=== PATIENT | female | born 1935 | race Caucasian/White ===

== ENCOUNTER 2017-02-06 08:48 | Emergency (ER) | payer OTHER ==
[~2017-02-06] VITALS: Ht 152.4 cm; Wt 65.8 kg
[~2017-02-06 08:48] MED LIST: ACCUPRIL PO; ACETAMINOPHEN325 M1 PO; ACIPHEX 20 MG T20 MG PO; ACTONEL150 MG PO; ACTOS 45 MG45 M1 PO; ADULT LOW DOSE81 MG PO; AKWA TEARS EYE15 ML OP; ALBUTEROL2.5 MG/31; ALPRAZOLAM 0.0.25 M1 PO; AMARYL2 MG PO; ASPIR 8181 M1 PO; ASPIRIN81 M2 PO; AVELOX 400 MG400 M1 PO; B12INJ SUBQ; BISACODYL10 MG RC; BUDESONIDE EC3 MG PO; CALCIUM 500 +1 EAC5 PO; CALCIUM 500+D1 EAC2 PO; CALCIUM 600 +1 EAC1 PO; CEPHALEXIN500 MG PO; CIPROFLOXACIN500 M1 PO; COLACE100 MG PO; COMTAN200 MG PO; COZAAR 50 MG TA50 M2 PO; CYANOCOBAL1000 MCG/1 IM; CYANOCOBALAMI100 MCG PO; DETROL LA4 MG PO; DUETACT 30-2 M1 EACH PO; ENDOCORT PO; ENOXAPARIN40 MG/0.1 SUBQ; ENTOCORT EC 3 MG3 MG PO; ENTOCORT EC3 MG PO; FLEXERIL PO; FOSAMAX 70 MG T70 M1 PO; FOSAMAX 70 MG T70 MG PO; FUROSEMIDE 40 M40 M1 PO; FUROSEMIDE 40 M40 MG PO; FUROSEMIDE10 MG/1 M2 PO; GLIMEPIRIDE PO; HYDROCODON-ACE1 EAC7 PO; IBUPROFEN 400400 M1 PO; JANTOVEN1 MG PO; KEFLEX500 MG PO; KLOR-CON 10 ER10 MEQ PO; KLOR-CON 1010 MEQ PO; LANTUS SOL100 UNIT/1 SUBQ; LASIX 40 MG TAB40 M1 PO; LEVAQUIN 500 M500 M2 PO; LEVOTHYROXIN0.075 MG PO; LEVOTHYROXIN0.112 M1 PO; LEVOTHYROXIN0.125 M2 PO; LEVOXYL150 MCG PO; LEVOXYL75 MCG PO; LIDODERM 5%1 PATC1 TRANSDERM; LINZESS290 MCG PO; LOFIBRA160 MG PO; LOPRESSOR25; LOPRESSOR25 PO; MACROBID 100 M100 M1 PO; METHADONE HCL5 MG PO; MIRALAX255 GM PO; MIRAPEX ER0.75 MG PO; MULTIVITAMIN; NEPHROCAPS SOFT1 CAP; NEURONTIN 300300 M1 PO; NITROFURANTOIN100 MG PO; NORCO 5-325 TA1 EACH PO; NORTRIPTYLINE H10 M1 PO; NOVOLOG100 UNIT/1; OMEPRAZOLE PO; OSELB75 PO; PACERONE 200 M200 M1 NG; PACERONE 200 M200 M1 PO; PACERONE 200 M200 MG PO; PAMELOR10 MG PO; PIOGLITAZ-GLIM1 EAC1 PO; PIOGLITAZONE PO; POLYCITRA GT; POTASSIUM CHLO10 ME1 PO; PRILOSEC 20 MG20 MG PO; PRILOSEC20 MG PO; QUINU10 PD PO; RYTHMOL225 MG PO; SENOKOT-S1 TA1 PO; SIMVASTATIN20 MG PO; SINEMET 25-1001 EAC1 PO; SLOW-MAG64 MG PO; STOOL SOFTENER100 MG PO; STOOL SOFTENER250 MG PO; SYNTHROID75 MCG PO; TAMSULOSIN HCL0.4 M1 PO; TOPROL XL25 MG PO; TOPROL XL50 MG PO; TORSEMIDE100 MG PO; TRAMADOL 50 MG50 MG PO; TUMS PO; TYLENOL325 MG PO; VENTOLIN HFA 1818 GM; VITAMIN B-12100 MC1 PO; VITAMIN B-1250 MC1; Vitamin B-12; WELLBUTRIN SR150 MG PO; XANAX 0.25 MG0.25 MG PO; ZETIA10 MG PO; ZOCOR 10 MG TAB10 MG PO; ZOCOR40 MG PO; ZOFRAN ODT4 MG PO; ZYVOX600 MG PO
[2017-02-06 09:09] LABS: ABSOLUTE NEUTROPHILS 5.3 thou/uL (1.4-8.2); BASOPHILS 0.6 % (0.0-2.0); EOSINOPHILS 0.5 % (0.0-3.0); HEMATOCRIT 37.5 % (37.0-47.0); HEMOGLOBIN 12.6 gm/dL (12.0-15.0); LYMPHOCYTES 29.4 % (24.0-44.0); MANUAL DIFF NO; MCH 26.9 pg (26.0-34.0); MCHC 33.6 g/dL (28.0-37.0); MCV 80.1 fL (80.0-100.0); MONOCYTES 5.4 % (1.0-8.0); PLATELET COUNT 256 thou/uL (150-400); POLYS 64.1 % (36.0-66.0); RBC 4.68 mil/uL (4.20-5.00); RDW 17.6 % (10.5-14.5); WBC 8.3 thou/uL (4.0-11.0)
[2017-02-06 09:15] LABS: ANION GAP 10 mmol/L (7-16); BUN 16 mg/dL (7-18); CALCIUM 8.9 mg/dL (8.5-10.1); CHLORIDE 108 mmol/L (98-107); CO2 24 mmol/L (21-32); CREATININE 0.9 mg/dL (0.6-1.3); GLUCOSE 103 mg/dL (70-99); POTASSIUM 3.5 mmol/L (3.5-5.1); SODIUM 142 mmol/L (136-145)
[2017-02-06 09:20] LABS: ALBUMIN 2.6 g/dL (3.4-5.0); ALKALINE PHOSPHATASE 75 U/L (46-116); DIRECT BILIRUBIN < 0.1 mg/dL (<0.1-0.3); SGOT 21 U/L (15-37); SGPT 14 U/L (30-65); TOTAL BILIRUBIN 0.4 mg/dL (<0.1-1.0)
[2017-02-06 10:21] LABS: URINE BILIRUBIN NEGATIVE (Negative); URINE BLOOD 1+ (Negative); URINE COLOR YELLOW; URINE GLUCOSE-RANDOM* NEGATIVE (Negative); URINE KETONES NEGATIVE (Negative); URINE NITRITE NEGATIVE (Negative); URINE PROTEIN (DIPSTICK) TRACE (Negative)
[2017-02-06 10:51] LABS: CASTS None Seen /LPF (None Seen); CRYSTALS None Seen /LPF (None Seen); SQUAMOUS >10 Many /LPF (0-3); URINE RBC 0-2 Rare /HPF (0-2); URINE WBC >25 Many /HPF (0-5)
[2017-02-06 10:52] LABS: BACTERIA >30 Many /HPF (None Seen)
[2017-02-06] MEDS ORDERED: COZAAR 25 MG TA25 M1 PO (10:57)
[2017-02-06] MEDS ORDERED: KEFLEX500 MG PO (10:58)
[2017-02-06] MEDS ORDERED: CITRATE OF MAG296 ML PO (10:59)
[2017-02-06] MEDS ORDERED: CIPROFLOXACIN500 M1 PO (11:03)
== END 2017-02-06 12:41 | disposition home or self-care (01) ==
LOC: ER 08:48
PROVIDERS: Emergency Medicine
DX: N39.0 Urinary tract infection, site not specified (principal); K59.00 Constipation, unspecified; R11.0 Nausea; I48.91 Unspecified atrial fibrillation; I10 Essential (primary) hypertension; K21.9 Gastro-esophageal reflux disease without esophagitis; K50.90 Crohn's disease, unspecified, without complications; E11.9 Type 2 diabetes mellitus without complications; I69.820 Aphasia following other cerebrovascular disease; Z88.8 Allergy status to other drugs, medicaments and biological substances; Z86.2 Personal history of diseases of the blood and blood-forming organs and certain disorders involving the immune mechanism; Z88.2 Allergy status to sulfonamides; Z88.5 Allergy status to narcotic agent

== ENCOUNTER 2018-04-24 21:08 | Inpatient (IN) | payer OTHER ==
[~2018-04-24] VITALS: Ht 154.9 cm; Wt 60.3 kg
--- NOTE | ~2018-04-24 | HC ---
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 She was a premorbid short distance walker ambulator and used the wheelchair in the community. She was admitted with right hip pain, noted to have a hip subtrochanteric fracture and underwent intramedullary nailing on 04/25/2018. She is limited to toe touch weightbearing. She has an acute blood loss anemia with a hemoglobin of 6.9, was noted to have leukocytosis, dehydration. She was noted to have dysarthria and MRI of the brain confirmed the old left large middle cerebral artery CVA. PAST MEDICAL HISTORY: Includes the CVA in 2009 with the residual right hemiparesis. She has had a history of multiple old compression fractures T10-T12, L2-L3, history of paroxysmal atrial fibrillation, diabetes mellitus, GERD and GI bleed. MEDICATIONS: Please see the full medication listing. ALLERGIES: Multiple allergies are as listed. SOCIAL HISTORY: House, spouse, one step in, again roller walker in the home. She has residual flexion deformity of her right hand and was really only able to use her thumb and index finger around the walker on the right hand and then used the left hand normally. She otherwise was using a wheelchair. helped with dressing activities. REVIEW OF SYSTEMS: She has some discomfort involving that right hip as expected. No complaints of chest pain, shortness of breath, abdominal discomfort. PHYSICAL EXAMINATION: GENERAL: An 82-year-old female in no obvious distress. She is currently on nasal prong O2. VITAL SIGNS: Temperature 98.4, pulse 95, respirations 18, blood pressure 103/53. NEUROLOGIC: She is alert. She follows basic 1 step commands. Facies are [facility] [address] [place] [address] CONSULTATION Name: JADA BOLTON Room #: [address] [place] [address] [place] ..#: [id number] Admission: 04/24/18 Attend Phys: Onofre Rocha Discharge: Date of : 34 Report #: [id number] symmetric. She has functional range of motion of the left upper extremity without focal weakness. Right upper extremity reveals residual hemiparesis. Proximal strength is probably a grade 2+ to 3. She keeps her right hand in assisted position. I was able to extend those fingers probably an inch away from being totally fixed and flexion against her palm. She only has some gross movement of that right hand without any fine finger dexterity and remains in a fist position. In her right lower extremity, her incision is dressed. She has positioning in a plantar flexion, inversion ankle, but is able to dorsiflex some at least a grade 3+. Left lower extremity revealed reasonable range of motion. Strength is probably a grade 3+ to 4-. She is currently max assist with supine to sit, toe touch weightbearing. ASSESSMENT: An 82-year-old female with the following problems: 1. Right hip subtrochanteric fracture status post intramedullary nail on 04/25/2018, toe touch weightbearing. 2. 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 3. Right upper extremity weakness, which inhibits full grasp of the right hand on the walker handle. 4. Dysarthria. 5. Leukocytosis. 6. Acute blood loss anemia. 7. Dehydration. 8. History of multiple old compression fractures. 9. Paroxysmal atrial fibrillation. 10. Diabetes mellitus. 11. Gastroesophageal reflux. PLAN: We are assessing the patient as far as tolerance for rehabilitation. We will be glad to follow along with you. <ELECTRONICALLY SIGNED> By: Saul Saunders MD 04/28/18 1228 1134 1319 Saul Saunders MD /[facility]
--- NOTE | ~2018-04-24 | O ---
[facility] [place] [address] [place] [address] OPERATIVE REPORT Name: JADA BOLTON Room #: 401-I [facility] IN M.R.#: [id number] Admission: 04/24/18 Attend Phys: Onofre Rocha Discharge: Date of : 34 Report #: [id number] THIS REPORT FOR: //name// CC: FAM unknown Onofre Gillespie DATE OF SERVICE: 04/25/2018 PREOPERATIVE DIAGNOSIS: Right hip subtrochanteric hip fracture. POSTOPERATIVE DIAGNOSIS: Right hip subtrochanteric hip fracture. PROCEDURE: Right hip intramedullary nail. SURGEON: Clint Joseph MD GILL BOX FIXER: Emma Freed. ANESTHESIA: General. ESTIMATED BLOOD LOSS: 50 mL. DRAINS: No drains. TOURNIQUET: No tourniquet. COMPLICATIONS: No complications. DESCRIPTION OF PROCEDURE: The patient brought to the operating room where she was placed under general anesthesia. Once under adequate general anesthesia, she was placed onto the operative table. The right hip was then placed into traction and a closed reduction was then achieved of the hip fracture. Utilizing fluoroscopy for guidance, a lateral incision was made just proximal to the tip of the greater trochanter. A curved cannulated awl was then utilized to obtain an entrance position for the guidewire for the trochanteric femoral nail from [employer]. Guidewire was then placed and subsequently the 11 mm short trochanteric femoral nail from [employer] was placed. A lateral incision was made over the guide for the compression screw guidewire, which was then placed through the lateral cortex of the femur into the central portion of the femoral head. Once in place, this was then drilled for and a 100-mm compression screw was then placed. Excellent position and alignment was achieved in this manner. A separate small incision, approximately 1 cm in length was then made for placement of the transverse locking screw. This was then placed under fluoroscopic guidance as well and a 36 mm screw was utilized for fixation. Excellent fixation and alignment was achieved. The proximal locking screw was [facility] [address] [place] [address] OPERATIVE REPORT Name: JADA BOLTON Room #: 401-I [facility] IN [facility].#: [id number] Admission: 04/24/18 Attend Phys: Onofre Rocha Discharge: Date of : 34 Report #: [id number] locked. The wounds were irrigated copiously. The outrigger jig was then removed from the nail. Final images were taken. The wounds were irrigated copiously and closed with 2-0 Vicryl and subcutaneous tissues. Chloe were used for the skin. The wounds were dressed with Xeroform, 4 x 4s, and sterile soft compressive dressing was placed. There were no complications from the procedure. The patient tolerated the procedure well and went to the recovery room without incident. By: 1440 1519 Clint Joseph MD /nt
[~2018-04-24 21:08] MED LIST changes: +CITRATE OF MAG296 ML PO; +COZAAR 25 MG TA25 M1 PO; +FEVERALL650 MG RECTAL; +HUMALOG100 UNIT/1 SUBQ; +OXYCODONE HCL 55 MG PO
[2018-04-24 21:13] VITALS: BP 116/50
[2018-04-24 23:10] LABS: CALCIUM 8.3 mg/dL (8.5-10.1); POTASSIUM 3.9 mmol/L (3.5-5.1)
[2018-04-25] VITALS (7 sets, daily range): BP systolic 101–136; BP diastolic 48–68
[2018-04-25 00:08] LABS: ABSOLUTE NEUTROPHILS 15.3 thou/uL (1.4-8.2); BASOPHILS 0.1 % (0.0-2.0); HEMATOCRIT 28.3 % (37.0-47.0); HEMOGLOBIN 8.8 gm/dL (12.0-15.0); LYMPHOCYTES 8.2 % (24.0-44.0); MCH 22.9 pg (26.0-34.0); MCV 73.8 fL (80.0-100.0); MONOCYTES 6.7 % (1.0-8.0); PLATELET COUNT 282 thou/uL (150-400); RBC 3.83 mil/uL (4.20-5.00); RDW 19.3 % (10.5-14.5)
[2018-04-25 02:25] LABS: ANISOCYTOSIS 2+; HYPOCHROMASIA SLIGHT; LARGE PLATELETS OCCASIONAL; POLYCHROMASIA OCCASIONAL
[2018-04-25 02:46] LABS: URINE BILIRUBIN NEGATIVE (Negative); URINE BLOOD NEGATIVE (Negative); URINE CLARITY CLEAR; URINE COLOR YELLOW; URINE GLUCOSE-RANDOM* NEGATIVE (Negative); URINE KETONES NEGATIVE (Negative); URINE LEUKOCYTES-REFLEX NEGATIVE (Negative); URINE NITRITE-REFLEX NEGATIVE (Negative); URINE PROTEIN (DIPSTICK) NEGATIVE (Negative)
[2018-04-25 02:59] LABS: PROTIME 10.7 Seconds (9.3-11.4)
[2018-04-25 05:06] LABS: ALBUMIN 2.7 g/dL (3.4-5.0); DIRECT BILIRUBIN 0.2 mg/dL (<0.1-0.3); SGOT 26 U/L (15-37); SGPT 37 U/L (30-65); TOTAL BILIRUBIN 0.4 mg/dL (<0.1-1.0); TOTAL PROTEIN 6.8 g/dL (6.4-8.2); TROPONIN-I < 0.04 ng/mL (<0.06)
[2018-04-25 07:31] LABS: CALCIUM 8.7 mg/dL (8.5-10.1); CREATININE 1.1 mg/dL (0.6-1.0); POTASSIUM 3.7 mmol/L (3.5-5.1)
[2018-04-25 08:17] LABS: HEMATOCRIT 28.3 % (37.0-47.0); HEMOGLOBIN 9.1 gm/dL (12.0-15.0); MCH 23.3 pg (26.0-34.0); MCHC 32.2 g/dL (28.0-37.0); MCV 72.6 fL (80.0-100.0); RBC 3.9 mil/uL (4.20-5.00); RDW 18.7 % (10.5-14.5); WBC 14.5 thou/uL (4.0-11.0)
[2018-04-25 13:12] LABS: GLYCOHEMOGLOBIN (HGB A1C) 6.5 % (4.8-5.6)
[2018-04-26 03:04] VITALS: BP 108/49
[2018-04-26 05:54] LABS: HEMATOCRIT 21.6 % (37.0-47.0); MCHC 31.8 g/dL (28.0-37.0); RDW 18.7 % (10.5-14.5); WBC 14.9 thou/uL (4.0-11.0)
[2018-04-26 05:56] LABS: MCH 23.3 pg (26.0-34.0); MCV 73.4 fL (80.0-100.0); RBC 2.94 mil/uL (4.20-5.00)
[2018-04-26 06:05] LABS: ALBUMIN 2.3 g/dL (3.4-5.0); CALCIUM 7.6 mg/dL (8.5-10.1); CREATININE 1.2 mg/dL (0.6-1.0); PHOSPHORUS 3.7 mg/dL (2.5-4.9); POTASSIUM 3.4 mmol/L (3.5-5.1)
[2018-04-26 06:15] LABS: HEMOGLOBIN 6.9 gm/dL (12.0-15.0)
[2018-04-26 06:58] VITALS: BP 116/62
[2018-04-26 10:37] LABS: CHOLESTEROL 129 mg/dL (<200); HDL CHOLESTEROL 34 mg/dL (>40); LDL CHOLESTEROL 70 mg/dL (<100); TC:HDL 3.8 Ratio (Not establshd); TRIGLYCERIDE 127 mg/dL (<150); VLDL 25 mg/dL (<40)
[2018-04-26 12:36] LABS: HEMATOCRIT 19.4 % (37.0-47.0); HEMOGLOBIN 6.2 gm/dL (12.0-15.0)
[2018-04-26 12:43] VITALS: BP 109/46; BP 117/62
[2018-04-26 16:45] VITALS: BP 117/62
[2018-04-26 20:37] VITALS: BP 113/45
[2018-04-26 21:31] LABS: HEMATOCRIT 24.1 % (37.0-47.0); HEMOGLOBIN 7.7 gm/dL (12.0-15.0)
[2018-04-27 03:17] VITALS: BP 104/45
[2018-04-27 05:34] LABS: HEMATOCRIT 23.7 % (37.0-47.0); HEMOGLOBIN 7.6 gm/dL (12.0-15.0); MCH 23.8 pg (26.0-34.0); MCHC 32.1 g/dL (28.0-37.0); MCV 74.2 fL (80.0-100.0); RBC 3.19 mil/uL (4.20-5.00); RDW 17.7 % (10.5-14.5); WBC 13.9 thou/uL (4.0-11.0)
[2018-04-27 07:34] VITALS: BP 103/53
[2018-04-27 16:57] VITALS: BP 91/46
[2018-04-27 20:00] VITALS: BP 88/46
[2018-04-28 04:00] VITALS: BP 81/62
[2018-04-28 04:40] LABS: HEMATOCRIT 23.6 % (37.0-47.0); HEMOGLOBIN 7.6 gm/dL (12.0-15.0); MCH 24.1 pg (26.0-34.0); MCHC 32.3 g/dL (28.0-37.0); MCV 74.4 fL (80.0-100.0); RBC 3.17 mil/uL (4.20-5.00); RDW 18.1 % (10.5-14.5); WBC 10.7 thou/uL (4.0-11.0)
[2018-04-28 04:48] LABS: CALCIUM 7.8 mg/dL (8.5-10.1); PHOSPHORUS 2.5 mg/dL (2.5-4.9); POTASSIUM 3.2 mmol/L (3.5-5.1)
[2018-04-28 06:37] VITALS: BP 109/44
[2018-04-28 07:17] VITALS: BP 123/57
[2018-04-28] MEDS ORDERED: ENOXAPARIN30 MG/0.1 SUBQ (11:55)
== END 2018-04-28 16:16 | DRG 480 ==
LOC: ER 21:08 → 4N 22:22 → EROBS 22:22 → 4N 04-25 08:45
PROVIDERS: Emergency Medicine; Hospitalist; Nurse Practitioner Acute Care; Orthopaedic Surgery Foot and Ankle Surgery
PROC: 0QS806Z Reposition Right Femoral Shaft with Intramedullary Internal Fixation Device, Open Approach (ICD-10-PCS; principal; 2018-04-25)
PROC: 30233N1 Transfusion of Nonautologous Red Blood Cells into Peripheral Vein, Percutaneous Approach (ICD-10-PCS; 2018-04-26)
DX: S72.141A Displaced intertrochanteric fracture of right femur, initial encounter for closed fracture (principal); E43 Unspecified severe protein-calorie malnutrition; K50.90 Crohn's disease, unspecified, without complications; I69.951 Hemiplegia and hemiparesis following unspecified cerebrovascular disease affecting right dominant side; D62 Acute posthemorrhagic anemia; E03.9 Hypothyroidism, unspecified; K21.9 Gastro-esophageal reflux disease without esophagitis; E11.9 Type 2 diabetes mellitus without complications; I48.0 Paroxysmal atrial fibrillation; R47.1 Dysarthria and anarthria; K59.00 Constipation, unspecified; D72.829 Elevated white blood cell count, unspecified; E86.0 Dehydration; W18.39XA Other fall on same level, initial encounter; Y93.89 Activity, other specified; Y92.89 Other specified places as the place of occurrence of the external cause; Y99.8 Other external cause status; Z82.49 Family history of ischemic heart disease and other diseases of the circulatory system; Z83.3 Family history of diabetes mellitus; I69.920 Aphasia following unspecified cerebrovascular disease; Z88.8 Allergy status to other drugs, medicaments and biological substances; Z88.6 Allergy status to analgesic agent; Z88.2 Allergy status to sulfonamides; Z79.899 Other long term (current) drug therapy; Z79.01 Long term (current) use of anticoagulants; Z68.25 Body mass index [BMI] 25.0-25.9, adult
CPT/HCPCS: 10790; 50010; 50101; 50133; 50386; 50635; 51412; 51538; 51817; 52146; 56524; 57092; 62110; 62900; 65045; 70005

== ENCOUNTER 2018-04-28 13:16 | Inpatient (IN) | payer OTHER ==
[~2018-04-28] VITALS: Ht 162.6 cm; Wt 61.2 kg
--- NOTE | ~2018-04-28 | 2DMMODE ---
[facility] [address] [place] [address] 2 D/M-MODE ECHOCARDIOGRAM Name: JADA BOLTON Room #: 512-P [facility] IN ..#: [id number] Admission: 04/28/18 Attend Phys: Saul Saunders, Discharge: Date of : 34 Date of Service: 05/01/18 1531 Report #: [id number] THIS REPORT FOR: //name// APPROVED REPORT Study performed: 05/01/2018 13:43:59 EXAM: Comprehensive 2D, Doppler, and color-flow Echocardiogram Patient Location: Bedside Room #: 512 Status: routine BSA: 1.69 HR: 112 bpm BP: 122/46 mmHg Rhythm: Tachycardia Other Information Study Quality: Adequate Technically limited study due to inabilibty to position patient. Sitting upright in bed. Indications Elevated BNP, hypoxemia. Hx: CVA, Afib, DM, HTN. 2D Dimensions RVDd: 20.64 mm LVEF(%): 75.85 (>50%) IVSd: 8.31 (7-11mm) LVOT Diam: 19.68 (18-24mm) LVDd: 33.76 mm PWd: 7.29 (7-11mm) LVDs: 19.06 (25-40mm) Aortic Root: 30.48 mm Sanchez's LVEF: 75.85 % Volumes Left Atrial Volume (Systole) Single Plane 4CH: 24.86 mL Single Plane 2CH: 45.74 mL Aortic Valve AoV Peak Ignacio.: 2.30 m/s AO Peak Gr.: 21.13 mmHg LVOT Max P.29 mmHg LVOT Max V: 1.44 m/s OLEG Vmax: 1.90 cm2 Mitral Valve E/A Ratio: 0.7 [facility] [place] [address] 2 D/M-MODE ECHOCARDIOGRAM Name: JADA BOLTON Room #: 512-P [facility] IN ..#: [id number] Admission: 04/28/18 Attend Phys: Saul Saunders, Discharge: Date of : 34 Date of Service: 05/01/18 1531 Report #: [id number] MV Decel. Time: 132.96 ms MV E Max Ignacio.: 1.07 m/s MV A Ignacio.: 1.60 m/s MV PHT: 38.56 ms IVRT: 46.14 ms Pulmonary Valve PV Peak Ignacio.: 1.29 m/s PV Peak Gr.: 6.68 mmHg Tricuspid Valve TR Peak Ignacio.: 2.91 m/s TR Peak Gr.: 33.87 mmHg Left Ventricle The left ventricle is normal size. There is normal LV segmental wall motion. There is normal left ventricular wall thickness. Left ventricular systolic function is hyperdynamic. LVEF is 65-70%. Mild diastolic dysfunction is present (impaired relaxation pattern). Right Ventricle The right ventricle is normal size. The right ventricular systolic function is normal. Atria Left atrium is mildly dilated. Hyperdynamic motion of the IAS noted. The right atrium size is normal. Aortic Valve Aortic valve is mildly calcified. No aortic regurgitation is present. There is no aortic valvular stenosis. Mitral Valve The mitral valve is normal in structure. Trace mitral regurgitation. Tricuspid Valve The tricuspid valve is normal in structure. Mild tricuspid regurgitation. Estimated PAP is 35mmHg plus the right atrial pressure. Pulmonic Valve Pulmonic valve is not well visualized. Great Vessels The aortic root is normal in size. Ascending aorta is not well [facility] [address] [place] [address] 2 D/M-MODE ECHOCARDIOGRAM Name: JADA BOLTON Room #: 512-P [facility] IN .R.#: [id number] Admission: 04/28/18 Attend Phys: Saul Saunders, Discharge: Date of : 34 Date of Service: 05/01/18 1531 Report #: [id number] visualized. IVC is not well visualized. Pericardium There is no pericardial effusion. <Conclusion> The left ventricle is normal size. LVEF is 65-70%. Left atrium is mildly dilated. Aortic valve is mildly calcified. The mitral valve is normal in structure. Trace mitral regurgitation. The tricuspid valve is normal in structure. Mild tricuspid regurgitation. Estimated PAP is 35mmHg plus the right atrial pressure. Ascending aorta is not well visualized. There is no pericardial effusion. <ELECTRONICALLY SIGNED> By: Wisam Carrasco MD 05/01/18 1531 1531 153 Wisam Carrasco MD /INF
--- NOTE | ~2018-04-28 | HC ---
[facility] [place] [address] [place] [address] CONSULTATION Name: JADA BOLTON Room #: 512-P [facility] IN M.R.#: [id number] Admission: 04/28/18 Attend Phys: Saul Saunders MD Discharge: 05/11/18 Date of : 34 Report #: [id number] THIS REPORT FOR: //name// CC: Saul Saunders Alyssia Gillespie DATE OF SERVICE: 05/11/2018 SUBJECTIVE: The patient is a pleasant 82-year-old woman is seen by the wound care team consisting the wound care nurse and the wound care surgeon. She is being seen for pressure ulcers of the right and left heel, immobility, protein calorie malnutrition and abrasions of her right thigh, left arm and right arm, which are skin tears. OBJECTIVE: Examination today shows dry, dark pressure ulcers, which are deep tissue injuries of indeterminate depth of the right and the left heel. Right heel ulcer is larger than the left. Left is lateral and small. The patient is relatively immobile. She appears malnourished. The patient has superficial abrasion of the right thigh. There are superficial skin tears of the left arm and the right arm. PLAN: Maximize nutrition. Foam border for both heels with foam boots to offload and protect the heels. Foam borders for abrasions of the right thigh, left arm and right arm. Wound care team will follow. <ELECTRONICALLY SIGNED> By: Jose Mejía MD 05/14/18 1000 1702 1939 Jose Mejía MD /shyla
--- NOTE | ~2018-04-28 | HC ---
[facility] [place] [address] CONSULTATION Name: JADA BOLTON Room #: 512-P [facility] IN .R.#: [id number] Admission: 04/28/18 Attend Phys: Saul Saunders MD Discharge: 05/11/18 Date of : 34 Report #: [id number] THIS REPORT FOR: //name// CC: Saul Saunders Alyssia Ellisonjaz DATE OF SERVICE: 05/05/2018 CHIEF COMPLAINT: Pressure ulcerations to both lower extremities. HISTORY OF PRESENT ILLNESS: This is an 82-year-old female patient who sustained a right hip subtrochanteric fracture. She underwent open reduction and internal fixation with a right hip intramedullary nail on 04/25/2018. She has been in rehabilitation. She is noted to have deep tissue injuries to her right heel and left lateral foot and I have been asked to see her with regard to wound care. The patient cannot provide much information about herself at present. She is awake, sitting in a wheelchair. She complains of significant pain, in particular in her right hip. She is nonweightbearing currently on her right hip. She does have weightbearing on her left side to aid with transfers. PAST MEDICAL HISTORY: Positive for cerebrovascular accident in 2009 with residual hemiparesis, she has old compression fractures, paroxysmal atrial fibrillation, diabetes, gastroesophageal reflux disease and history of GI bleeding. MEDICATIONS: Please see full list of medications on the patient's MAR. These have been reviewed. ALLERGIES: INCLUDE DILTIAZEM, NITROFURANTOIN MACROCRYSTAL, SULFA, HYDROCODONE, METFORMIN. SOCIAL HISTORY: Negative for alcohol or tobacco use. FAMILY HISTORY: Noncontributory. REVIEW OF SYSTEMS: Mostly unobtainable due to the fact that the patient seems to be in pain and has either an inability to fully answer questions or has some baseline cognitive deficit. PHYSICAL EXAMINATION: VITAL SIGNS: At this time include pulse rate of 85, respiratory rate 12, blood pressure 119/55, and temperature 98.4. GENERAL: This is a chronically ill-appearing female patient, appears to be in moderate discomfort. HEENT: Normocephalic. NECK: Supple. [facility] [address] [place] [address] CONSULTATION Name: JADA BOLTON Room #: 512-P [facility] IN M.R.#: [id number] Admission: 04/28/18 Attend Phys: Saul Saunders MD Discharge: 05/11/18 Date of : 34 Report #: [id number] LUNGS: Diminished. HEART: Irregular. ABDOMEN: Soft. EXTREMITIES: Demonstrate 1+ edema. She has some dependent edema and some hyperpigmentation of the skin. She has a deep tissue injury to the posterior aspect of the right heel, nothing is open at this time. On the left side, she also has a deep tissue injury to the posterior lateral portion of her heel, once again nothing is open. CLINICAL IMPRESSION: 1. Deep tissue injury to both heels. 2. Recent right hip fracture. 3. Status post open reduction and internal fixation, 04/25/2018. 4. Diabetes. 5. Paroxysmal atrial fibrillation. RECOMMENDATIONS: At this point in time, the patient will need Prevalon boots for pressure prophylaxis. We will recommend topical bordered foam to help protect these areas, we will continue to follow them closely while she is here. It may be of benefit to check arterial Dopplers to verify arterial flow. I appreciate being asked to see her in consultation. <ELECTRONICALLY SIGNED> By: Solis Nicole MD 05/15/18 1406 0843 1338 Solis Nicole MD /nt
--- NOTE | ~2018-04-28 | PLAN ---
[facility] [place] [address] [place] [address] REHAB UNIT PLAN OF CARE Name: JADA BOLTON Room #: 512-P ADM IN M.R.#: [id number] Admission: 04/28/18 Attend Phys: Saul Saunders MD Discharge: Date of : 34 Report #: [id number] THIS REPORT FOR: //name// CC: Saul Gillespie DATE OF SERVICE: 05/01/2018 SUBJECTIVE: The patient is seen back today in followup. She had kind of a rough weekend with some decreased orientation. She does have the prior aphasia. She has been on 2 liters nasal prong O2. She has some edema in both lower and upper extremities, 1-2+. She has been changed over to a low air loss mattress. She has an indwelling Mahajan catheter. has been assisting with feeding her. She has been max assist with attempted to sit to stand and bed to chair transfers. She is unable to ambulate with her prior CVA and hemiparesis and the toe touch nonweightbearing status. She has been dependent for toileting and bed mobility. Max assist for comprehension. ASSESSMENT: 1. Right hip subtrochanteric fracture, status post intramedullary nailing, 04/25/2018, toe-touch weightbearing to nonweightbearing. 2. 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 3. Right upper extremity weakness, which inhibits full grasp of the right hand. 4. Dysarthria. 5. Acute blood loss anemia, was transfused over 7.0. 6. Tachycardia with congestive heart failure. She has been on Lasix. 7. Dehydration, resolved. 8. Diabetes mellitus. 9. Gastroparesis. PLAN: The overall plan of care is based on the preadmission screen, post-admission physician evaluation and information garnered from therapy assessments. 1. Estimated length of stay is probably going to be quite long at this point as she is at a lower functional level. 2. Medical prognosis is reasonably good. 3. Anticipated interventions includes the interdisciplinary acute inpatient rehabilitation program with the goal of trying to improve her functional mobility and ADL independence as well as working with her regarding communication issues. We will have the interdisciplinary acute rehab team involved along with the sales representative consultant physicians. 4. Anticipated functional outcome would be for her to hopefully improve as far as basic transfers and functional mobility issues and ADLs as well as communication to achieve a point where she could be managed at the wheelchair level where her could assist her. [facility] [address] [place] [address] REHAB UNIT PLAN OF CARE Name: JADA BOLTON Room #: 512-P [facility] IN .R.#: [id number] Admission: 04/28/18 Attend Phys: Saul Saunders MD Discharge: Date of : 34 Report #: [id number] 5. Discharge destination would be back home with her . 6. Expected therapy by discipline includes PT, OT and speech 1 hour per day each five days a week throughout the duration of the acute inpatient rehabilitation stay. She actually is on the low endurance program and we are continuing to work with her. ADDENDUM: The patient did miss some therapies on 04/29/2018 on Tuesday when she had some increased fatigue and some increased shortness of air with Internal Medicine involved and the use of Lasix. ADDENDUM As far as estimated length of stay, I would estimate at least 3 weeks to 4 weeks pending her progress. This is based on her prior CVA with residual hemiparesis complicated by the hip fracture with the limited weightbearing status. By: 0913 [id number] Saul Saunders MD /[facility]
--- NOTE | ~2018-04-28 | EKG ---
[address] [address] ELECTROCARDIOGRAM REPORT Name: JADA BOLTON Room #: 512- ADM IN M.R.#: [id number] Admission: 04/28/18 Attend Phys: Saul Saunders MD Discharge: Date of : 34 Report #: [id number] THIS REPORT FOR: //name// [facility] Test Date: 2018-04-30 Test Time: 10:43:38 Pat Name: JADA BOLTON Department: Room: 512 Gender: F Survey Interviewer: tess : 1935 Requested By: Onofre Rocha Order Number: [id number] MD: Antonio Mckeon Measurements Intervals [place] Rate: 94 P: 27 MD: 175 QRS: -32 QRSD: 88 T: 51 QT: 394 QTc: 493 Interpretive Statements Sinus rhythm Inferior infarct, old Compared to ECG 05/06/2017 15:26:09 Myocardial infarct finding now present Prolonged QT interval no longer present Electronically Signed On 04-30-2018 21:18:26 CDT by Antonio Mckeon [email or web address] <ELECTRONICALLY SIGNED> By: Antonio Mckeon MD 04/30/18 2118 1043 1043 Antonio Mckeon MD /[facility]
--- NOTE | ~2018-04-28 | H ---
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 She was a premorbid short distance walker ambulator and used a wheelchair in the community. She was originally admitted with right hip pain, noted to have a hip subtrochanteric fracture and underwent intramedullary nailing on 04/25/2018. She is limited to toe touch nonweightbearing. She had an acute blood loss anemia with a hemoglobin of 6.9. She was noted to have leukocytosis and dehydration. She does have dysarthria and with her significant right-sided hemiparesis, there was a concern as to whether she may have extended her stroke. MRI of the brain confirmed the old left large middle cerebral artery CVA. With her significant hemiparesis, her speech difficulties complicated now with the hip fracture. She was noted to have a functional decline from her premorbid status. She has been admitted now for acute in-hospital inpatient rehabilitation. 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 She has history of multiple old compression fractures, T10-T12 through L2-L3. She has a history of paroxysmal atrial fibrillation, diabetes mellitus, GERD, and GI bleed. MEDICATIONS: Please see the full medication listing. These medications include vitamins, herbals, and supplements. ALLERGIES: Multiple allergies are as listed. SOCIAL HISTORY: She lives in a house with her , one step in. She used a roller walker in the home. She has a residual flexion deformity of her right hand and was only able to use her thumb and index finger around the walker with the right hand and then use the left hand normally around the walker. She otherwise was using the wheelchair. helps with dressing activities. REVIEW OF SYSTEMS: Some discomfort involving the right hip. No complaints of chest pain, shortness of breath or abdominal discomfort. She has residual right-sided weakness with her old stroke. PHYSICAL EXAMINATION: [address] [address] HISTORY AND PHYSICAL Name: JADA BOLTON Room #: 512-P [facility] IN [facility]#: [id number] Admission: 04/28/18 Attend Phys: Saul Saunders MD Discharge: Date of : 34 Report #: [id number] GENERAL: The patient was seen earlier. An 82-year-old in no distress. VITAL SIGNS: Pulse 102, respirations 18, blood pressure 132/55. She is alert. HEENT: Facies appeared to be symmetric. She does have some dysarthria and somewhat difficult to understand, but if she speaks slowly, I can understand her. Belarusian is her primary language, but she can speak Kyrgyz. Her assists with communication. EOMs otherwise appeared full. CHEST: Sounded clear to auscultation. CARDIAC: Regular rate and rhythm. ABDOMEN: Bowel sounds positive, nontender. GENITOURINARY AND RECTAL: Deferred. MUSCULOSKELETAL: She has functional range of motion of the left upper extremity without focal weakness. Right upper extremity reveals residual hemiparesis. Proximal strength is a grade 2+ to 3. She keeps the right hand in a fisted position. I was able to extend those fingers probably an inch away from being totally fixed and flexed against her palm. She only has some gross movement of that right hand without any fine finger dexterity and remains in the fisted position. In her right lower extremity, her incision is dressed. She has positioning on plantar flexion, inversion of the ankle, but can dorsiflex some at least to a grade 3+. Left lower extremity revealed reasonable range of motion. Strength is probably a grade 3+ to 4-/5. She has been max assist with supine to sit, toe touch weightbearing. ASSESSMENT: An 82-year-old female with the following problem list: 1. Right hip subtrochanteric fracture, status post intramedullary nail on 04/25/2018, toe touch weightbearing. 2. 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 3. Right upper extremity weakness, which inhibits full grasp of the right hand on the walker handle. 4. Dysarthria. 5. Leukocytosis. 6. Acute blood loss anemia. 7. Dehydration. 8. History of multiple old compression fractures. 9. Paroxysmal atrial fibrillation. 10. Diabetes mellitus. 11. Gastroparesis. PLAN: The patient is admitted for acute in-hospital inpatient rehabilitation. From a postadmission physician evaluation perspective, there are no relevant changes since the preadmission screening. Please see the above review of prior and current medical and functional conditions and comorbidities. Please see the patient's previous and current functional status. As far as risk of complication, she does have the above noted comorbidities. The initial plan of care involves the interdisciplinary acute inpatient rehabilitation program with the goal of maximizing the patient's functional independence, so she can [address] [place] [address] HISTORY AND PHYSICAL Name: JADA BOLTON Shannan Room #: 512-P ADM IN M.R.#: [id number] Admission: 04/28/18 Attend Phys: Saul Saunders MD Discharge: Date of : 34 Report #: [id number] hopefully return back to her prior living situation. Measurable functional goals would be for her to improve as far as basic bed mobility and transfers to try to achieve independence at the wheelchair level to try to return back home. Prognosis is reasonably good with estimated length of stay probably fairly long as she is at a lower level. The goal would be to achieve a functional level where the and family can take care for her in the home setting. Potential barriers would include her medical comorbidities and decreased functional status. The patient meets diagnostic criteria for an acute in-hospital inpatient rehabilitation stay. She meets the medical necessity criteria and we will have the senior business consultant physicians continue to follow. She does have the tolerance for therapies and we assessed this prior to bringing her up to the rehab [place]. She also has appropriate discharge goals back to the home setting. By: [id number] Saul Saunders MD /nt
--- NOTE | ~2018-04-28 | HC ---
[facility] [place] [address] CONSULTATION Name: JADA BOLTON Room #: 512-P [facility] IN .R.#: [id number] Admission: 04/28/18 Attend Phys: Saul Saunders MD Discharge: Date of : 34 Report #: [id number] THIS REPORT FOR: //name// CC: Saul Saunders Alyssia Gillespie DATE OF SERVICE: 05/06/2018 NEUROBEHAVIORAL STATUS EXAMINATION ATTENDING PHYSICIAN: Saul Saunders MD RUG UNDERLAY MACHINE OPERATOR: Gregorio Cheng, PhD CLINICAL PRESENTATION: The patient is an 82-year-old female, admitted to [facility] for a comprehensive inpatient rehabilitation program to improve functional mobility, activities of daily living and self-care and mental status secondary to deficits from a right hip subtrochanteric fracture. She was admitted to rehab following an intramedullary nailing on 04/25/2018. The patient is toe touch weightbearing. 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 A complete description of her medical condition and history along with medications can be found in her medical record. Neuropsychological consultation was requested to provide assistance in the assessment of cognitive and emotional status and to provide recommendations and services. Prior to this most recent medical event she was living with the assistance of her in their home. She has 4 children. The patient is a high school graduate. 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 She is described to have a good functional Gibraltarian and is fluent in Citizen Of [place], which is her primary language. There is no prior history of treatment for anxiety or depression that is reported. She is described as having required assistance with some basic and all instrumental activities of daily living prior to this most recent stroke. TECHNIQUES UTILIZED: Clinical interview, review of medical records, staff consultation and behavioral observation, mini mental status exam 2 brief version, and family interview -- . EXAMINATION FINDINGS: The patient was alert and cooperative with the assessment. Citizen Of [place] is better maintained for communication in comparison to [place]raltarian. The patient was oriented to person and place, but not location or time. She has been showing intermittent periods of confusion and disorientation [address] [address] CONSULTATION Name: PAPITO BOLTONVA Room #: 512-P [facility] IN ..#: [id number] Admission: 04/28/18 Attend Phys: Saul Saunders MD Discharge: Date of : 34 Report #: [id number] during her rehabilitation program. Her mood appears depressed and anxious. Appetite is poor. She is more sedentary during the day. Variability in mood is likely contributing to her participation and reactivity to pain. Depressed mood and anxiety may be further interfering with her participation in a more active rehabilitation program. DIAGNOSTIC IMPRESSION: Delirium, hypoactive, acute. Major neurocognitive disorder (dementia), with vascular features, without behavior disorder -- extent to be determined, likely in the moderate range. Unspecified Depressive Disorder RECOMMENDATIONS: The patient may benefit from the use of an antidepressant medication. Consider Remeron to assist with appetite. Reduce as medically appropriate medication with sedating features, e.g., narcotic analgesics. Verbal praise and compliments when engaged during therapies. Thank you very much for allowing me to provide the consultation on this patient. <ELECTRONICALLY SIGNED> By: Gregorio Cheng, PhD 05/07/18 1602 1510 [id number] Gregorio Cheng, PhD /nt
[~2018-04-28 13:16] MED LIST changes: +ENOXAPARIN30 MG/0.1 SUBQ
[2018-04-28 16:20] VITALS: BP 121/53
[2018-04-29 06:19] LABS: HEMATOCRIT 21.8 % (37.0-47.0); HEMOGLOBIN 7.3 gm/dL (12.0-15.0); MCH 24.8 pg (26.0-34.0); MCHC 33.3 g/dL (28.0-37.0); MCV 74.4 fL (80.0-100.0); RBC 2.93 mil/uL (4.20-5.00); RDW 18.3 % (10.5-14.5); WBC 10.1 thou/uL (4.0-11.0)
[2018-04-29 06:28] LABS: CALCIUM 7.7 mg/dL (8.5-10.1); CREATININE 0.8 mg/dL (0.6-1.0); POTASSIUM 3.1 mmol/L (3.5-5.1)
[2018-04-29 20:49] VITALS: BP 113/52
[2018-04-30 07:15] VITALS: BP 106/48
[2018-04-30 07:44] LABS: CALCIUM 7.9 mg/dL (8.5-10.1); CREATININE 1.1 mg/dL (0.6-1.0)
[2018-04-30 07:46] LABS: POTASSIUM 4.2 mmol/L (3.5-5.1)
[2018-04-30 20:00] VITALS: BP 125/33
[2018-04-30 22:30] VITALS: BP 108/60
[2018-05-01 03:05] VITALS: BP 121/52
[2018-05-01 03:36] LABS: ALBUMIN 1.9 g/dL (3.4-5.0); CALCIUM 7.8 mg/dL (8.5-10.1); MAGNESIUM 1.9 mg/dL (1.8-2.4); PHOSPHORUS 1.9 mg/dL (2.5-4.9); POTASSIUM 4.3 mmol/L (3.5-5.1)
[2018-05-01 03:55] LABS: HEMATOCRIT 21.8 % (37.0-47.0); MCH 24.4 pg (26.0-34.0); MCHC 32.3 g/dL (28.0-37.0); MCV 75.6 fL (80.0-100.0); RBC 2.88 mil/uL (4.20-5.00); RDW 19.1 % (10.5-14.5); WBC 14.3 thou/uL (4.0-11.0)
[2018-05-01 08:29] LABS: % SATURATION 10 % (20-39); IRON 25 ug/dL (50-170); TIBC 253 ug/dL (250-450)
[2018-05-01 09:00] LABS: TSH 3.455 uIU/mL (0.358-3.740)
[2018-05-01 09:30] VITALS: BP 122/46
[2018-05-01 19:30] VITALS: BP 116/51
[2018-05-02 08:00] VITALS: BP 118/59
[2018-05-02 19:41] VITALS: BP 113/55
[2018-05-03 06:34] LABS: RBC 2.72 mil/uL (4.20-5.00); WBC 16.1 thou/uL (4.0-11.0)
[2018-05-03 06:36] LABS: HEMOGLOBIN 6.7 gm/dL (12.0-15.0); MCH 24.5 pg (26.0-34.0); MCHC 31.7 g/dL (28.0-37.0); MCV 77.2 fL (80.0-100.0); PLATELET COUNT 334 thou/uL (150-400); RDW 19.9 % (10.5-14.5)
[2018-05-03 06:39] LABS: CALCIUM 8.5 mg/dL (8.5-10.1); CREATININE 1.2 mg/dL (0.6-1.0); MAGNESIUM 2.4 mg/dL (1.8-2.4); POTASSIUM 5.1 mmol/L (3.5-5.1)
[2018-05-03 07:30] VITALS: BP 101/48
[2018-05-03 08:12] LABS: ABSOLUTE NEUTROPHILS 11.9 thou/uL (1.4-8.2); ANISOCYTOSIS 1+; HYPOCHROMASIA 2+; METAMYELOCYTES 2 %; MICROCYTES 1+; MYELOCYTES 1 %; NUCLEATED RBCS 1 /100WBC; PLATELET ESTIMATE NORMAL; POLYCHROMASIA 1+
[2018-05-03 13:45] VITALS: BP 111/52; BP 120/58
[2018-05-03 19:54] VITALS: BP 106/55
[2018-05-04 02:53] VITALS: BP 129/56
[2018-05-04 09:00] VITALS: BP 112/55
[2018-05-04 15:21] LABS: HEMATOCRIT 28.6 % (37.0-47.0); MCH 24.8 pg (26.0-34.0); MCHC 32.8 g/dL (28.0-37.0); MCV 75.5 fL (80.0-100.0); PLATELET COUNT 363 thou/uL (150-400); RBC 3.78 mil/uL (4.20-5.00); RDW 19.6 % (10.5-14.5); WBC 14.4 thou/uL (4.0-11.0)
[2018-05-04 15:22] LABS: HEMOGLOBIN 9.4 gm/dL (12.0-15.0)
[2018-05-04 15:48] LABS: ABSOLUTE NEUTROPHILS 13.1 thou/uL (1.4-8.2); NUCLEATED RBCS 1 /100WBC
[2018-05-04 15:50] LABS: PLATELET ESTIMATE NORMAL; POLYCHROMASIA 1+
[2018-05-04 15:51] LABS: ANISOCYTOSIS 2+; SCHISTOCYTES RARE
[2018-05-04 15:52] LABS: OVALOCYTES OCCASIONAL
[2018-05-04 20:21] VITALS: BP 116/55
[2018-05-05 06:24] VITALS: BP 119/55
[2018-05-05 06:31] LABS: HEMATOCRIT 26.9 % (37.0-47.0); HEMOGLOBIN 8.7 gm/dL (12.0-15.0); MCH 24.6 pg (26.0-34.0); MCHC 32.3 g/dL (28.0-37.0); MCV 76.2 fL (80.0-100.0); PLATELET COUNT 329 thou/uL (150-400); RBC 3.53 mil/uL (4.20-5.00); RDW 19.8 % (10.5-14.5); WBC 13.3 thou/uL (4.0-11.0)
[2018-05-05 06:41] LABS: CALCIUM 8.4 mg/dL (8.5-10.1); CREATININE 1.1 mg/dL (0.6-1.0); MAGNESIUM 2.4 mg/dL (1.8-2.4); POTASSIUM 4.2 mmol/L (3.5-5.1)
[2018-05-05 08:28] LABS: ABSOLUTE NEUTROPHILS 10.6 thou/uL (1.4-8.2)
[2018-05-05 08:29] LABS: ANISOCYTOSIS 2+; HYPOCHROMASIA 1+; POLYCHROMASIA SLIGHT
[2018-05-05 19:55] VITALS: BP 115/61
[2018-05-06 08:40] VITALS: BP 118/60
[2018-05-06 19:22] VITALS: BP 126/60
[2018-05-07 07:50] VITALS: BP 125/46
[2018-05-07 09:52] LABS: HEMATOCRIT 27.3 % (37.0-47.0); HEMOGLOBIN 9.3 gm/dL (12.0-15.0); MCH 26.3 pg (26.0-34.0); MCHC 33.9 g/dL (28.0-37.0); MCV 77.5 fL (80.0-100.0); RBC 3.52 mil/uL (4.20-5.00); RDW 19.9 % (10.5-14.5); WBC 10.8 thou/uL (4.0-11.0)
[2018-05-07 19:43] VITALS: BP 121/58
[2018-05-08 07:21] LABS: ABSOLUTE NEUTROPHILS 8.8 thou/uL (1.4-8.2); BASOPHILS 0.3 % (0.0-2.0); EOSINOPHILS 0.6 % (0.0-3.0); HEMATOCRIT 26.4 % (37.0-47.0); HEMOGLOBIN 8.7 gm/dL (12.0-15.0); LYMPHOCYTES 14.8 % (24.0-44.0); MCH 25.7 pg (26.0-34.0); MCHC 32.8 g/dL (28.0-37.0); MCV 78.3 fL (80.0-100.0); MONOCYTES 8.9 % (1.0-8.0); PLATELET COUNT 362 thou/uL (150-400); POLYS 75.4 % (36.0-66.0); RBC 3.37 mil/uL (4.20-5.00); RDW 21.1 % (10.5-14.5); WBC 11.6 thou/uL (4.0-11.0)
[2018-05-08 07:30] LABS: CALCIUM 7.8 mg/dL (8.5-10.1); CREATININE 0.9 mg/dL (0.6-1.0); MAGNESIUM 2.4 mg/dL (1.8-2.4)
[2018-05-08 07:45] VITALS: BP 108/49
[2018-05-08 20:15] VITALS: BP 106/44
[2018-05-09 07:30] VITALS: BP 135/70
[2018-05-09 19:44] VITALS: BP 136/71
[2018-05-10 04:39] LABS: HEMATOCRIT 27.5 % (37.0-47.0); HEMOGLOBIN 9.2 gm/dL (12.0-15.0); MCHC 33.5 g/dL (28.0-37.0); MCV 77.6 fL (80.0-100.0); PLATELET COUNT 363 thou/uL (150-400); RBC 3.55 mil/uL (4.20-5.00); RDW 23.5 % (10.5-14.5); WBC 10.9 thou/uL (4.0-11.0)
[2018-05-10 04:49] LABS: CALCIUM 8.1 mg/dL (8.5-10.1); MAGNESIUM 2.4 mg/dL (1.8-2.4); POTASSIUM 4.5 mmol/L (3.5-5.1)
[2018-05-10 07:28] LABS: ABSOLUTE NEUTROPHILS 8.2 thou/uL (1.4-8.2); ANISOCYTOSIS 3+; POLYCHROMASIA 2+
[2018-05-10 07:40] VITALS: BP 124/61
[2018-05-10] MEDS ORDERED: IRON325 PO (09:02)
[2018-05-10] MEDS ORDERED: TYLENOL EXTRA500 MG PO (09:02)
[2018-05-10] MEDS ORDERED: DOXYCYCLINE HYC50 MG PO (09:02)
[2018-05-10] MEDS ORDERED: SENNA-TIME S T1 EACH PO (09:02)
[2018-05-10] MEDS ORDERED: IPRAT-ALBUT 0.5-3 ML INH (09:02)
[2018-05-10 19:40] VITALS: BP 127/68
[2018-05-11 08:45] VITALS: BP 117/59
== END 2018-05-11 15:32 | DRG 963 ==
PROVIDERS: Hospitalist; Nurse Practitioner; Nurse Practitioner Family; Physical Medicine & Rehabilitation
PROC: 30233N1 Transfusion of Nonautologous Red Blood Cells into Peripheral Vein, Percutaneous Approach (ICD-10-PCS; principal; 2018-05-03)
DX: S72.21XA Displaced subtrochanteric fracture of right femur, initial encounter for closed fracture (principal); E43 Unspecified severe protein-calorie malnutrition; S32.591A Other specified fracture of right pubis, initial encounter for closed fracture; S32.10XA Unspecified fracture of sacrum, initial encounter for closed fracture; D62 Acute posthemorrhagic anemia; R47.01 Aphasia; N17.9 Acute kidney failure, unspecified; K50.90 Crohn's disease, unspecified, without complications; J90 Pleural effusion, not elsewhere classified; I69.351 Hemiplegia and hemiparesis following cerebral infarction affecting right dominant side; R53.81 Other malaise; S72.141A Displaced intertrochanteric fracture of right femur, initial encounter for closed fracture; R13.12 Dysphagia, oropharyngeal phase; D72.829 Elevated white blood cell count, unspecified; E86.0 Dehydration; I48.0 Paroxysmal atrial fibrillation; K21.9 Gastro-esophageal reflux disease without esophagitis; E11.43 Type 2 diabetes mellitus with diabetic autonomic (poly)neuropathy; K31.84 Gastroparesis; R00.0 Tachycardia, unspecified; I50.9 Heart failure, unspecified; W18.39XA Other fall on same level, initial encounter; R53.1 Weakness; L89.629 Pressure ulcer of left heel, unspecified stage; L89.619 Pressure ulcer of right heel, unspecified stage; R41.0 Disorientation, unspecified; F01.50 Vascular dementia, unspecified severity, without behavioral disturbance, psychotic disturbance, mood disturbance, and anxiety; F32.9 Major depressive disorder, single episode, unspecified; S70.311A Abrasion, right thigh, initial encounter; S40.812A Abrasion of left upper arm, initial encounter; S40.811A Abrasion of right upper arm, initial encounter; X58.XXXA Exposure to other specified factors, initial encounter; E11.9 Type 2 diabetes mellitus without complications; R09.02 Hypoxemia; K59.00 Constipation, unspecified; I69.322 Dysarthria following cerebral infarction; I69.320 Aphasia following cerebral infarction; Y93.89 Activity, other specified; Y92.89 Other specified places as the place of occurrence of the external cause; Y99.8 Other external cause status; Z88.8 Allergy status to other drugs, medicaments and biological substances; Z88.2 Allergy status to sulfonamides; Z68.23 Body mass index [BMI] 23.0-23.9, adult
CPT/HCPCS: 10112

== ENCOUNTER 2018-06-04 14:38 | Emergency (ER) | payer OTHER ==
[~2018-06-04] VITALS: Ht 162.6 cm; Wt 61.2 kg
--- NOTE | ~2018-06-04 | EKG ---
[place] [address] [facility] [place] [place] [address] ELECTROCARDIOGRAM REPORT Name: JADA BOLTON [id number] Admission: 06/04/18 Attend Phys: Discharge: 06/04/18 Date of : 34 Report #: [id number] THIS REPORT FOR: //name// [facility] ED Test Date: 2018-06-04 Test Time: 15:14:16 Pat Name: JADA BOLTON Department: Room: Gender: F Sand Control Worker: JJ : 1935 Requested By: Bolivar Stevens Order Number: [id number] MD: Alexander Bassett Measurements Intervals [place] Rate: 89 P: -5 ND: 158 QRS: 6 QRSD: 138 T: 41 QT: 400 QTc: 487 Interpretive Statements Sinus rhythm Early R-wave progression Prolonged QT interval Baseline wander in lead(s) V3 Compared to ECG 04/30/2018 10:43:38 No significant change was found Electronically Signed On 06-05-2018 8:22:12 CDT by Alexander Bassett [email or web address] <ELECTRONICALLY SIGNED> By: Alexander Bassett MD, [facility] 06/05/18 0822 1514 1514 Alexander Bassett MD, [facility] /EPI
--- NOTE | ~2018-06-04 | EKG ---
[address] [address] ELECTROCARDIOGRAM REPORT Name: JADA BOLTON [id number] Admission: 06/04/18 Attend Phys: Discharge: 06/04/18 Date of : 34 Report #: [id number] THIS REPORT FOR: //name// [facility] ED Test Date: 2018-06-04 Test Time: 15:06:46 Pat Name: JADA BOLTON Department: Room: Gender: F Microelectronics Technician: JStephania : 1935 Requested By: Bolivar Stevens Order Number: [id number] MD: Alexander Bassett Measurements Intervals [place] Rate: 88 P: [place]: QRS: -2 QRSD: 213 T: 44 QT: 422 QTc: 511 Interpretive Statements Baseline artifact limits interpretation Probable sinus rhythm Prolonged QT interval Artifact in lead(s) I,II,aVR,V1,V2,V3,V4,V5,V6 Compared to ECG 04/30/2018 10:43:38 Prolonged QT interval now present Electronically Signed On 06-05-2018 8:21:37 CDT by Alexander Bassett [email or web address] <ELECTRONICALLY SIGNED> By: Alexander Bassett MD, [facility] 06/05/18 0821 1506 1506 Alexander Bassett MD, [facility] /EPI
[~2018-06-04 14:38] MED LIST changes: +DOXYCYCLINE HYC50 MG PO; +IPRAT-ALBUT 0.5-3 ML INH; +IRON325 PO; +SENNA-TIME S T1 EACH PO; +TYLENOL EXTRA500 MG PO
[2018-06-04 14:58] LABS: HEMATOCRIT 28.9 % (37.0-47.0); HEMOGLOBIN 9.5 gm/dL (12.0-15.0); MCH 27.6 pg (26.0-34.0); MCHC 32.9 g/dL (28.0-37.0); PLATELET COUNT 350 thou/uL (150-400); RBC 3.44 mil/uL (4.20-5.00); RDW 25.2 % (10.5-14.5); WBC 12.9 thou/uL (4.0-11.0)
[2018-06-04 15:10] LABS: ANION GAP 8 mmol/L (7-16); BUN 10 mg/dL (7-18); CALCIUM 8.4 mg/dL (8.5-10.1); CHLORIDE 107 mmol/L (98-107); CO2 25 mmol/L (21-32); CREATININE 0.7 mg/dL (0.6-1.0); GLUCOSE 97 mg/dL (74-106); POTASSIUM 3.5 mmol/L (3.5-5.1); SODIUM 140 mmol/L (136-145)
[2018-06-04 15:20] LABS: TROPONIN-I <0.06 ng/mL (<0.06)
[2018-06-04 15:27] LABS: ABSOLUTE NEUTROPHILS 8.8 thou/uL (1.4-8.2); ANISOCYTOSIS 3+; POLYCHROMASIA SLIGHT
[2018-06-04] MEDS ORDERED: LEVAQUIN 750 M750 MG PO (17:30)
== END 2018-06-04 19:11 ==
LOC: ER 14:38
PROVIDERS: Emergency Medicine
DX: J18.9 Pneumonia, unspecified organism (principal); I48.91 Unspecified atrial fibrillation; E03.9 Hypothyroidism, unspecified; I10 Essential (primary) hypertension; K21.9 Gastro-esophageal reflux disease without esophagitis; K50.90 Crohn's disease, unspecified, without complications; E11.9 Type 2 diabetes mellitus without complications; Z88.5 Allergy status to narcotic agent; Z88.1 Allergy status to other antibiotic agents; Z88.8 Allergy status to other drugs, medicaments and biological substances

== ENCOUNTER 2019-10-10 10:41 | Emergency (ER) | payer OTHER ==
[~2019-10-10] VITALS: Ht 154.9 cm; Wt 54.4 kg
[~2019-10-10 10:41] MED LIST changes: +LEVAQUIN 750 M750 MG PO
[2019-10-10 12:00] VITALS: BP 172/79
== END 2019-10-10 14:04 | disposition home or self-care (01) ==
LOC: ER 10:41
DX: S22.009A Unspecified fracture of unspecified thoracic vertebra, initial encounter for closed fracture (principal); S32.009A Unspecified fracture of unspecified lumbar vertebra, initial encounter for closed fracture; S46.921A Laceration of unspecified muscle, fascia and tendon at shoulder and upper arm level, right arm, initial encounter; M54.2 Cervicalgia; I48.91 Unspecified atrial fibrillation; E03.9 Hypothyroidism, unspecified; I10 Essential (primary) hypertension; K21.9 Gastro-esophageal reflux disease without esophagitis; E11.9 Type 2 diabetes mellitus without complications; Z79.4 Long term (current) use of insulin; Z88.8 Allergy status to other drugs, medicaments and biological substances; Z88.2 Allergy status to sulfonamides; Z88.5 Allergy status to narcotic agent; Z79.82 Long term (current) use of aspirin; Z79.899 Other long term (current) drug therapy; Z86.73 Personal history of transient ischemic attack (TIA), and cerebral infarction without residual deficits; W06.XXXA Fall from bed, initial encounter; Y93.89 Activity, other specified; Y92.092 Bedroom in other non-institutional residence as the place of occurrence of the external cause; Y99.9 Unspecified external cause status

== ENCOUNTER → 2020-05-28 | Outpatient (CLI) | payer OTHER | LOC: HYPER 08:48 | PROVIDERS: ATTEND Emergency Medicine | DX: E11.622 Type 2 diabetes mellitus with other skin ulcer (principal); L89.313 Pressure ulcer of right buttock, stage 3; L89.322 Pressure ulcer of left buttock, stage 2; L98.411 Non-pressure chronic ulcer of buttock limited to breakdown of skin; K60.2 Anal fissure, unspecified; E03.9 Hypothyroidism, unspecified; M81.0 Age-related osteoporosis without current pathological fracture; I48.91 Unspecified atrial fibrillation; K50.90 Crohn's disease, unspecified, without complications; Z86.73 Personal history of transient ischemic attack (TIA), and cerebral infarction without residual deficits; Z79.82 Long term (current) use of aspirin; Z79.84 Long term (current) use of oral hypoglycemic drugs; Z90.49 Acquired absence of other specified parts of digestive tract; Z90.710 Acquired absence of both cervix and uterus ==

== ENCOUNTER → 2020-06-05 | Outpatient (CLI) | payer OTHER | LOC: HYPER 08:45 | PROVIDERS: ATTEND Emergency Medicine | DX: E11.622 Type 2 diabetes mellitus with other skin ulcer (principal); L89.313 Pressure ulcer of right buttock, stage 3; L89.322 Pressure ulcer of left buttock, stage 2; L98.411 Non-pressure chronic ulcer of buttock limited to breakdown of skin; S51.012A Laceration without foreign body of left elbow, initial encounter; S81.811A Laceration without foreign body, right lower leg, initial encounter; E03.9 Hypothyroidism, unspecified; I48.91 Unspecified atrial fibrillation; R54 Age-related physical debility; K60.2 Anal fissure, unspecified; K21.9 Gastro-esophageal reflux disease without esophagitis; K50.90 Crohn's disease, unspecified, without complications; M81.0 Age-related osteoporosis without current pathological fracture; M62.81 Muscle weakness (generalized); Z86.73 Personal history of transient ischemic attack (TIA), and cerebral infarction without residual deficits; Z79.84 Long term (current) use of oral hypoglycemic drugs; Z79.82 Long term (current) use of aspirin; X58.XXXA Exposure to other specified factors, initial encounter; Y93.89 Activity, other specified; Y92.89 Other specified places as the place of occurrence of the external cause; Y99.8 Other external cause status ==

== ENCOUNTER → 2020-06-19 | Outpatient (CLI) | payer OTHER | LOC: HYPER 13:19 | PROVIDERS: ATTEND Emergency Medicine Emergency Medical Services | DX: E11.622 Type 2 diabetes mellitus with other skin ulcer (principal); L89.313 Pressure ulcer of right buttock, stage 3; L89.322 Pressure ulcer of left buttock, stage 2; L98.411 Non-pressure chronic ulcer of buttock limited to breakdown of skin; E11.621 Type 2 diabetes mellitus with foot ulcer; L89.610 Pressure ulcer of right heel, unstageable; L97.411 Non-pressure chronic ulcer of right heel and midfoot limited to breakdown of skin; S51.012A Laceration without foreign body of left elbow, initial encounter; S81.811A Laceration without foreign body, right lower leg, initial encounter; R54 Age-related physical debility; E03.9 Hypothyroidism, unspecified; I48.91 Unspecified atrial fibrillation; M62.81 Muscle weakness (generalized); M81.0 Age-related osteoporosis without current pathological fracture; K60.2 Anal fissure, unspecified; K21.9 Gastro-esophageal reflux disease without esophagitis; K50.90 Crohn's disease, unspecified, without complications; Z79.82 Long term (current) use of aspirin; Z79.84 Long term (current) use of oral hypoglycemic drugs; Z86.73 Personal history of transient ischemic attack (TIA), and cerebral infarction without residual deficits; X58.XXXA Exposure to other specified factors, initial encounter; Y93.89 Activity, other specified; Y92.89 Other specified places as the place of occurrence of the external cause; Y99.8 Other external cause status ==

== ENCOUNTER 2020-06-23 13:39 | Emergency (ER) | payer OTHER ==
[~2020-06-23] VITALS: Ht 162.6 cm; Wt 56.7 kg
[~2020-06-23 13:39] MED LIST changes: +LOPRESSOR50 PO; +PRILOSEC OTC20 MG PO; -PRILOSEC20 MG PO
[2020-06-23] MEDS ORDERED: KEFLEX500 M1 PO (13:54)
[2020-06-23] MEDS ORDERED: COZAAR 25 MG TA25 M1 PO (13:55)
[2020-06-23] MEDS ORDERED: AMARYL2 M1 PO (13:56)
[2020-06-23] MEDS ORDERED: NORTRIPTYLINE H10 M1 PO (13:59)
[2020-06-23 15:20] VITALS: BP 133/81
== END 2020-06-23 15:26 | disposition home or self-care (01) ==
LOC: ER 13:39
DX: S81.801A Unspecified open wound, right lower leg, initial encounter (principal); I48.91 Unspecified atrial fibrillation; I10 Essential (primary) hypertension; E03.9 Hypothyroidism, unspecified; E11.9 Type 2 diabetes mellitus without complications; Z86.73 Personal history of transient ischemic attack (TIA), and cerebral infarction without residual deficits; Z79.899 Other long term (current) drug therapy; Z79.2 Long term (current) use of antibiotics; Z79.82 Long term (current) use of aspirin; Z88.8 Allergy status to other drugs, medicaments and biological substances; Z88.2 Allergy status to sulfonamides; Z88.6 Allergy status to analgesic agent; X58.XXXA Exposure to other specified factors, initial encounter; Y93.89 Activity, other specified; Y92.89 Other specified places as the place of occurrence of the external cause; Y99.8 Other external cause status

== ENCOUNTER → 2020-06-26 | Outpatient (CLI) | payer OTHER ==
[~2020-06-26] MED LIST changes: +AMARYL2 M1 PO; +KEFLEX500 M1 PO
== END ==
LOC: HYPER 13:01
PROVIDERS: ATTEND Emergency Medicine
DX: E11.622 Type 2 diabetes mellitus with other skin ulcer (principal); L89.313 Pressure ulcer of right buttock, stage 3; L98.411 Non-pressure chronic ulcer of buttock limited to breakdown of skin; E11.621 Type 2 diabetes mellitus with foot ulcer; L89.610 Pressure ulcer of right heel, unstageable; L97.412 Non-pressure chronic ulcer of right heel and midfoot with fat layer exposed; S41.112D Laceration without foreign body of left upper arm, subsequent encounter; S81.811D Laceration without foreign body, right lower leg, subsequent encounter; S51.012D Laceration without foreign body of left elbow, subsequent encounter; K60.2 Anal fissure, unspecified; R54 Age-related physical debility; M62.81 Muscle weakness (generalized); E03.9 Hypothyroidism, unspecified; M81.0 Age-related osteoporosis without current pathological fracture; I48.91 Unspecified atrial fibrillation; K50.90 Crohn's disease, unspecified, without complications; Z86.73 Personal history of transient ischemic attack (TIA), and cerebral infarction without residual deficits; Z79.84 Long term (current) use of oral hypoglycemic drugs; Z79.82 Long term (current) use of aspirin; X58.XXXD Exposure to other specified factors, subsequent encounter

== ENCOUNTER 2020-11-02 09:38 | Inpatient (IN) | payer OTHER ==
[~2020-11-02] VITALS: Ht 152.4 cm; Wt 65.8 kg
--- NOTE | ~2020-11-02 | O ---
[facility] [place] [address] OPERATIVE REPORT Name: HOANGPAPITOJADA P Room #: 170-1 ADM IN M.R.#: [id number] Admission: 11/02/20 Attend Phys: Radha Bobby MD Discharge: Date of : 34 Report #: [id number] THIS REPORT FOR: cc: Alyssia Gillespie MD, Michelle R. MD Kneidel, Matthew T. MD ~ DATE OF SERVICE: 11/02/2020 PREOPERATIVE DIAGNOSIS: Open right proximal tibia fracture. POSTOPERATIVE DIAGNOSIS: Open right proximal tibia fracture. PROCEDURE: Irrigation and debridement and open reduction and internal fixation, right proximal tibia fracture. SURGEON: Clint Joseph M.D. HABILITATION WORKER: None. ANESTHESIA: General. ESTIMATED BLOOD LOSS: 20 mL. DRAINS: No drains. COMPLICATIONS: No complications. DESCRIPTION OF PROCEDURE: The patient was brought to the operating room where she was placed under general anesthesia. Once under adequate general anesthesia, her right lower extremity was prepped and draped in a sterile manner. The extremity was elevated and a tourniquet placed to 300 mmHg. The patient's laceration on the anterior tibia was extended laterally and an incision over the lateral compartment was made for exposure of the proximal tibia. The wound and the fracture was then irrigated copiously with normal saline solution, 3 liters of solution were run through the fracture site. The fracture was then subsequently reduced and a proximal tibial plate from the Synthes set was placed with 4 screws proximal to the fracture and 5 screws distal to the fracture for fixation. Excellent fixation and alignment was achieved. The wound was then irrigated copiously and closed with 0 Vicryl in the deep fascia. Attempts at 2-0 Vicryl in the subcutaneous tissue were unsatisfactory. The patient's skin was very thin and was tearing with the suture. Therefore, 2-0 nylon suture and marlo were used. Again, there were multiple skin tears upon wound closure. The wound was then dressed with Xeroform, 4 x 4s, ABDs, soft roll and an Roosevelt as well as a knee immobilizer. Tourniquet was let down at approximately 1 hour. Toes were pink and warm with [facility] [address] [place] [address] OPERATIVE REPORT Name: JADA BOLTON Room #: 170-1 ADM IN .R.#: [id number] Admission: 11/02/20 Attend Phys: Radha Bobby MD Discharge: Date of : 34 Report #: [id number] good capillary refill. There were no complications from the procedure. The patient went to the recovery room without incident. There were no complications from the procedure. The patient tolerated the procedure well. By: [id number] Clint Joseph MD /nt
[2020-11-02] MEDS ORDERED: PIOGLITAZ-GLIM1 EAC1 PO (09:55)
[2020-11-02] MEDS ORDERED: FOSAMAX 70 MG T70 MG PO (09:57)
[2020-11-02 12:39] LABS: BASOPHILS 0.3 % (0.0-2.0); EOSINOPHILS 0.4 % (0.0-3.0); HEMATOCRIT 26.4 % (37.0-47.0); LYMPHOCYTES 9.6 % (24.0-44.0); MCH 21.3 pg (26.0-34.0); MCHC 30.2 g/dL (28.0-37.0); MCV 70.6 fL (80.0-100.0); MONOCYTES 5.6 % (1.0-8.0); PLATELET COUNT 411 thou/uL (150-400); POLYS 84.1 % (36.0-66.0); RBC 3.74 mil/uL (4.20-5.00); RDW 22.2 % (10.5-14.5); WBC 15.4 thou/uL (4.0-11.0)
[2020-11-02 12:53] LABS: CALCIUM 8.5 mg/dL (8.5-10.1); CREATININE 1.1 mg/dL (0.6-1.0); POTASSIUM 4.1 mmol/L (3.5-5.1)
[2020-11-02 13:26] LABS: LARGE PLATELETS FEW; POIKILOCYTOSIS 1+; SCHISTOCYTES RARE
[2020-11-02 13:27] LABS: HYPOCHROMASIA 3+; MICROCYTES 3+
--- NOTE | 2020-11-02 18:03 | HC ---
[facility] [place] [address] CONSULTATION Name: PAPITO BOLTONRIGOBERTO Campbell Room #: 170-1 ADM IN M.R.#: [id number] Admission: 11/02/20 Attend Phys: Radha Bobby MD Discharge: Date of : 34 Report #: [id number] THIS REPORT FOR: cc: Alyssia Gillespie MD, Michelle R. MD Kneidel, Matthew T. MD ~ DATE OF SERVICE: 11/02/2020 CHIEF COMPLAINT: Right open tibia fracture. HISTORY OF PRESENT ILLNESS: This is an 85-year-old female who was transferring to the commode when she fell. She has limited mobility and limited leg pain in her right lower extremity anyway and was then subsequently evaluated in the Emergency Room, determined to have an open proximal tibia fracture. Orthopedics was consulted for management. PAST MEDICAL AND SURGICAL HISTORY: Significant for expressive aphasia, CVA in 2009, atrial fibrillation, anemia, history of GI bleed, hypothyroidism, hypertension, gastroesophageal reflux disease, Crohn's disease, L1 compression fracture, C. diff. She has had a hip fracture previously, which was fixed by me 2 years ago and a kyphoplasty in 2012. MEDICATIONS: Include Tylenol, history of multiple medications as noted on the JAN. ALLERGIES: TO DILTIAZEM, SULFA, NITROFURANTOIN, HYDROCODONE, METFORMIN. SOCIAL HISTORY: Negative. REVIEW OF SYSTEMS: As above. PHYSICAL EXAMINATION: VITAL SIGNS: Notes pulse ox of 97, blood pressure is 142/69, pulse is 91, respiratory rate is 17. EXTREMITIES: Notes her right lower extremity to have an open laceration over her proximal tibia with evident bone beneath the surface with a hematoma from the fracture noted as well. X-rays are reviewed, noting a comminuted displaced proximal tibia fracture. IMPRESSION: Open right tibial fracture. PLAN: Irrigation and debridement and open reduction and internal fixation of the right proximal tibia fracture. Risks, benefits, alternatives, complications [facility] [address] [place] [address] CONSULTATION Name: JADA BOLTON Room #: 170-1 [facility] IN [facility]#: [id number] Admission: 11/02/20 Attend Phys: Radha Bobby MD Discharge: Date of : 34 Report #: [id number] were discussed at length with the patient. We will proceed in the very near future. <ELECTRONICALLY SIGNED> By: Clint Joseph MD 11/02/20 1803 1247 1415 Clint Joseph MD /nt
[2020-11-02 20:17] VITALS: BP 80/45
[2020-11-02 22:57] LABS: HEMATOCRIT 21.4 % (37.0-47.0)
[2020-11-02 23:08] LABS: HEMOGLOBIN 6.2 gm/dL (12.0-15.0)
[2020-11-02 23:57] VITALS: BP 97/48
[2020-11-03] VITALS (9 sets, daily range): BP systolic 74–130; BP diastolic 33–85
--- NOTE | 2020-11-03 02:59 | NUR ---
ASSUMED CARE 1900. PT AO X 3 S/P ORIF OF RIGHT KNEE. PT BP 80/45, HELPER COORDINATOR FURNACE REPAIR MECHANIC NOTIFIED. ORDER TO BOLUS 1000 0.45 NS GIVEN, BUT PT HAS POOR PIV ACCESS. UNABLE TO TRANSFUSE BOLUS FLUIDS. ER NOTIFIED TO START IV WITH US BUT ALL INFILTRATED AFTER A FEW MINUTES OF TRANSFUSION. PT ALSO H&H WAS DONE FOUND HEMOGLOBIN 6.2. ORDER TO TRANSFUSE 1 UNIT OF PRBC GIVEN. CURRENTLY TRANSFUSING AT 100 ML/HR. PT WILL NEED CENTRAL LINE ACCESS DUE TO POOR PERIPHERAL ACCESS. HELPER COORDINATOR NOTIFIED. PT REMAINS ASYMPTOMATIC DESPITE LOW BPs. NO FEVER, NO C/O PAIN. PT IS EXTENSIVELY THIRD SPACED AND BRUISED. WILL CONTINUE TO FOLLOW POC.
--- NOTE | 2020-11-03 07:16 | EKG ---
[address] [place] [address] ELECTROCARDIOGRAM REPORT Name: JADA BOLTON Room #: 202-[facility] IN M.R.#: [id number] Admission: 11/02/20 Attend Phys: Radha Bobby MD Discharge: Date of : 34 Report #: [id number] [facility] ED Test Date: 2020-11-02 Test Time: 10:33:03 Pat Name: JADA BOLTON Department: Room: 202 Gender: F Personal Shopper: KYARA : 1935 Requested By: Bolivar Stevens Order Number: [id number] MD: Rajat Humphreys Measurements Intervals [place] Rate: 90 P: 67 IA: 196 QRS: -76 QRSD: 78 T: -5 QT: 412 QTc: 504 Interpretive Statements Sinus rhythm Ventricular premature complex Inferior infarct, old Compared to ECG 06/04/2018 15:14:16 Ventricular premature complex(es) now present Myocardial infarct finding now present Electronically Signed On 11-03-2020 7:15:58 SENIOR DYNAMICS CRM DEVELOPER by Rajat Humphreys [email or web address] <ELECTRONICALLY SIGNED> By: Rajat Humphreys MD, [facility] 11/03/20 0715 32 32 Rajat Humphreys MD, FAC /EPI
[2020-11-03 08:45] LABS: HEMATOCRIT 24.8 % (37.0-47.0); HEMOGLOBIN 7.6 gm/dL (12.0-15.0); MCH 22.8 pg (26.0-34.0); MCHC 30.6 g/dL (28.0-37.0); MCV 74.4 fL (80.0-100.0); RBC 3.34 mil/uL (4.20-5.00); RDW 22.4 % (10.5-14.5); WBC 23.9 thou/uL (4.0-11.0)
[2020-11-03 09:03] LABS: CALCIUM 7.9 mg/dL (8.5-10.1); CREATININE 1.6 mg/dL (0.6-1.0); POTASSIUM 4.9 mmol/L (3.5-5.1)
[2020-11-03 09:06] LABS: INR 1.2; PROTIME 12.4 Seconds (9.3-11.4)
--- NOTE | 2020-11-03 11:19 | NUR ---
met with patient and reviewed role of casemgt. Sp with spouse. Patient with prev CVA. Patient admits with femur fx. Patient resides at home with spouse. Spouse reports patient utilizes a wheelchair. Spouse reports he helps with all adls. He assists with transfers, bathing with bath bench, dressing. Discussed post acute care. Left skilled list in room for spouse to review. Discussed cannot visit in skilled facilities. Discussed likely not a candidate for acute rehab. Spouse plans to visit today and review list. Discussed ltc for patient in future but spouse denies. He plans to hire more assistance in home.
--- NOTE | 2020-11-03 18:36 | NUR ---
RECEIVED PT'S CARE AROUND 0745; PT. ON BED; ALERT; PER APPLICATION DEVELOPMENT SPECIALIST CENTRAL LINE PLACED DURING THE NIGHT; NOT CONFIRM BY DR. PALOMARES IF OK TO USE; DR. NOE ON THE ICU; PER DR. NOE OK TO USE CENTRAL LINE; IV FLUIDS STARTED; LABS WITHDRAW; HEMOGLOBIN ABOVE 7; PHYSICIAN NOTIFIED DURING ROUNDING; DURING AM ASSESSMENT PT. ALERT TO NAME, PLACE AND SITUATION; NO C/O PAIN; SR ON THE MONITOR; SBP LESS THAN 100; ALBUMIN RUNNED; STATUS CHANGE TO MS; D/C TELE; NOTICED COUGHING AFTER LUNCH; ST CONSULT; SPOUSE AT THE BED SIDE; UPDATED ABOUT POC AND PT'S HEALTH; ST. UNDERSTANDING; DURING THE EVENING SBP ON THE 100s; MAP ON THE 50s; PHYSICIAN AWARE; MONITORING; INCONTINENT; VOID ONE TIME THROUGH THE SHIFT; BLADDER SCANN SHOWED 158 ML; PHYSICIAN NOTIFIED; NO NEW ORDERS; TURN FROM SIDE TO SIDE; ASSESSMENT CHARGED; FOLLOWING POC; WILL PASS ON REPORT;
[2020-11-03 21:25] LABS: HEMATOCRIT 19.6 % (37.0-47.0); HEMOGLOBIN 6.1 gm/dL (12.0-15.0)
[2020-11-04 02:24] VITALS: BP 130/58
[2020-11-04 04:14] LABS: HEMATOCRIT 23.9 % (37.0-47.0); HEMOGLOBIN 7.5 gm/dL (12.0-15.0); MCH 25.4 pg (26.0-34.0); MCHC 31.6 g/dL (28.0-37.0); RBC 2.97 mil/uL (4.20-5.00); RDW 25.5 % (10.5-14.5); WBC 19.6 thou/uL (4.0-11.0)
[2020-11-04 04:16] LABS: CREATININE 1.9 mg/dL (0.6-1.0); POTASSIUM 4.4 mmol/L (3.5-5.1)
[2020-11-04 04:18] LABS: MCV 80.5 fL (80.0-100.0)
[2020-11-04 04:45] VITALS: BP 110/46
--- NOTE | 2020-11-04 06:32 | NUR ---
CARE ASSUMED, 1900, PT ALERT AND ORIENTED X 3. AT SHIFT CHNAGE, PT LETHERGIC, WITH BP 108/40. PT ALSO WASN'T MAKING A LOT OF URINE HAVING VOIDED X 1, DURING THE DAY SHIFT. BUSINESS MACHINE MECHANIC DEVELOPMENT SCIENTIST NOTIFIED, REPEAT H&H ORDERED. PT HGB CAME 6.1, HCt 19.6. ONE UNIT OF BLOOD ORDERED AND TRANSFUSED. REPEAT H&H WAS 7.5, AND 23.9. WILL CONTINUE TO MONITOR HGB Q6. NO ACTIVE BLEED NOTED PT IS SEVERE THIRD SPACED AND EDEMEDOUS, WEEPING EDEMA, ON BOTH UPPER AND LOWER EXTREMITIES. PT ALSO Cr AND BUN HAS BEEN RISING SINCE ADMISSION, THIS MORNING AT 1.9, AND 34. BUSINESS MACHINE MECHANIC DEVELOPMENT SCIENTIST NOTIFIED AND RENAL CONSULTED. BURTON CATHETER INITIATE DUE PT DECREASED OUTPUT AND AND IMMOBILITY. PT WAS ALSO CHANGE BACK TO CCT STATUS. WILL CONTINUE TO MONITOR. DENIES PAIN, OR ANY CHEST DISCOMFORT.
[2020-11-04 07:03] LABS: % SATURATION 7 % (20-39); IRON 15 ug/dL (50-170); TIBC 205 ug/dL (250-450)
[2020-11-04 07:31] LABS: OBSERVED RETIC COUNT 2.71 % (0.6-2.6)
[2020-11-04 08:09] LABS: FERRITIN 26 ng/mL (8-252)
[2020-11-04 08:16] VITALS: BP 115/52
[2020-11-04 12:00] VITALS: BP 129/62
[2020-11-04 12:04] LABS: HEMATOCRIT 25.9 % (37.0-47.0); HEMOGLOBIN 8.1 gm/dL (12.0-15.0)
[2020-11-04 13:42] LABS: URINE BILIRUBIN NEGATIVE (Negative); URINE BLOOD 2+ (Negative); URINE CLARITY SL CLOUDY; URINE COLOR YELLOW; URINE GLUCOSE-RANDOM* NEGATIVE (Negative); URINE KETONES TRACE (Negative); URINE NITRITE-REFLEX NEGATIVE (Negative); URINE PROTEIN (DIPSTICK) 1+ (Negative); URINE SPECIFIC GRAVITY 1.025 (1.005-1.035); URINE UROBILINOGEN 0.2 E.U./dl (0.2-1.0)
[2020-11-04 13:48] LABS: URINE LEUKOCYTES-REFLEX 1+ (Negative)
[2020-11-04 14:09] LABS: SQUAMOUS 0-3 Few /LPF (0-3)
[2020-11-04 14:10] LABS: CRYSTALS None Seen /LPF (None Seen); FINE GRANULAR CASTS 0-3 Few /LPF (None Seen)
[2020-11-04 14:12] LABS: BACTERIA-REFLEX 1-9 Few /HPF (None Seen); URINE RBC 3-10 Few /HPF (0-2); URINE WBC-REFLEX 0-5 Rare /HPF (0-5)
[2020-11-04 15:06] LABS: PROT/CREAT RATIO 1.1; URINE CREATININE-RANDOM* 83.2 mg/dL; URINE PROTEIN-RANDOM* 89.3 mg/dL (<11.9)
[2020-11-04 15:45] VITALS: BP 114/56
--- NOTE | 2020-11-04 15:46 | NUR ---
Spoke with spouse, interested in referral to [facility]
--- NOTE | 2020-11-04 16:58 | NUR ---
FAXED REFERRAL TO [facility] RECEIVED CONFIRMATION AND LEFT MSG WITH DEJUAN IN ADM.
[2020-11-04 17:11] LABS: HEMATOCRIT 23.3 % (37.0-47.0); HEMOGLOBIN 7.4 gm/dL (12.0-15.0)
[2020-11-04 20:10] VITALS: BP 115/58
--- NOTE | 2020-11-04 20:48 | NUR ---
ASSUMMED PT CARE AT APPROXIMATELY 0700. PT A&O X1. ASSESSMENT CHARTED. FALL PRECAUTINS IN PLACE. PT DENIES HAVING CHEST PAIN. PT DENIES HAVING SOB. PT STATED SHE WAS IN PAIN. PT RECIEVED ANALGESICS. VITAL SIGNS STABLE. BLOOD SUGARS STABLE. INFORMED DR. DUFFY OF PT'S CHEST XRAY RESULTS. DR. DUFFY STATED UNDERSTANDING C NO NEW ORDERS. INFORMED DR. BLANCHARD OF PT'S US RESUTLS. STATED UNDERSTANDING C NO NEW ORDERS. EDUCATED PT'S SPOUSE ABOUT POC. PT'S SPOUSE STATED UNDERSTANDING AND DENIED HAVING FURTHER QUESTIONS. PT COMFORTABLE. PT DENIES HAVING FURTHER CONCERNS.
[2020-11-04 22:23] LABS: HEMATOCRIT 22.5 % (37.0-47.0); HEMOGLOBIN 7.2 gm/dL (12.0-15.0)
[2020-11-05] VITALS (7 sets, daily range): BP systolic 116–141; BP diastolic 46–70
[2020-11-05 05:35] LABS: HEMATOCRIT 22.8 % (37.0-47.0); HEMOGLOBIN 7.2 gm/dL (12.0-15.0)
--- NOTE | 2020-11-05 05:45 | NUR ---
ASSUMED CARE AT 1900. PT ALERT AND ORIENTED TO SELF. EXPRESSIVE APHESIA, UNABLE TO EXPRESS NEEDS KNOWN WELL. RECHECKED HGB AT 2200 WAS 7.2. PT HAS BEEN NPO SINCE MIDNIGHT SCHEDULED EGD THIS MORNING. PT CONTINUE TO HAVE WEEPING EDEMA, LR X 1 INFUSED OVERNIGHT. CONSENT FORM SIGNED BY OBTAINING VERBAL ORDER FROM PT . SR ON THE MONITOR. DENIES ANY CHEST DISCOMFORT, NAUSEA OR VOMITING. NO PAIN OTHER THAN DURING MOVEMENT AND REPOSITIONING. WILL CONTINUE TO MONITOR AND FOLLOW POC
[2020-11-05 05:58] LABS: ALBUMIN 1.8 g/dL (3.4-5.0); CALCIUM 7.1 mg/dL (8.5-10.1); CREATININE 1.2 mg/dL (0.6-1.0); PHOSPHORUS 2.4 mg/dL (2.5-4.9); POTASSIUM 3.5 mmol/L (3.5-5.1)
[2020-11-05 10:45] LABS: HEMATOCRIT 22.8 % (37.0-47.0); HEMOGLOBIN 7.3 gm/dL (12.0-15.0)
--- NOTE | 2020-11-05 11:16 | NUR ---
BLOOD SUGAR OF 47, PT NPO. GAVE D50/ 50 ML THROUGH IJ. WILL REASSESS.
--- NOTE | 2020-11-05 17:52 | NUR ---
James accepting of patient for skilled care.
--- NOTE | 2020-11-05 20:05 | NUR ---
ASSUMED CARE OF PT AT SHIFT CHANGE. ASSESSEMTNS CHARTED. MEDS GIVEN PER JAN. PT ALERT TO SELF, NO C/O PAIN OR DISTRESS. EGD COMPLETE TODAY. GENERALIZED EDEMA CONTINUES TO WEEP. HGB STABLE DURING SHIFT. REPORTED OFF TO NOC NURSE.
[2020-11-06 03:26] VITALS: BP 125/71
[2020-11-06 06:01] LABS: HEMATOCRIT 23.5 % (37.0-47.0); HEMOGLOBIN 7.5 gm/dL (12.0-15.0)
[2020-11-06 06:26] LABS: ALBUMIN 1.6 g/dL (3.4-5.0); CALCIUM 7.4 mg/dL (8.5-10.1); CREATININE 0.8 mg/dL (0.6-1.0); PHOSPHORUS 1.8 mg/dL (2.5-4.9); POTASSIUM 3.3 mmol/L (3.5-5.1)
--- NOTE | 2020-11-06 07:08 | NUR ---
PATIENTS CARES WERE ASSUMED AT SHIFT CHANGE. PATIENT WAS ASSESSED AND MEDS WERE PASSED. PATIENT WAS FOUND WITH A BLOOD SUGAR OF 21 AT 2145. ONE AMP OF D50 WAS GIVEN RECHECK AGAIN AT 2200 AND SHE WAS 66. RECHECK AT 2215 AND WAS 74. PATIENT RECOVERED WELL AND SLEPT THE REST OF THIS SHIFT.
[2020-11-06 07:45] VITALS: BP 123/43
[2020-11-06 11:35] VITALS: BP 135/50
[2020-11-06 15:16] VITALS: BP 129/49
--- NOTE | 2020-11-06 16:55 | NUR ---
IT PF DISCHARGES OVER WEEKEND PLEASE FAX DC ORDERS/SUMMARY TO [facility] FAX: [phone] AND CALL TO [facility]SPORT [phone] ASK FOR ADMISSIONS.
--- NOTE | 2020-11-06 18:19 | NUR ---
ASSUMED CARE OF PT AT SHIFT CHANGE. ASSESSMENTS CHARTED. MEDS GIVEN PER JAN. PT ALERT TO SELF AND PLACE. VERY DROWSY. NOT EATING WELL. C/O PAIN WHEN BEING MOVED DURING THERAPY. CODE STATUS CHANGED TO NO CODE. WILL CONTINUE TO MONITOR AND FOLLOW POC.
[2020-11-06 19:05] VITALS: BP 129/49
[2020-11-06 20:25] VITALS: BP 128/49
[2020-11-07 04:32] VITALS: BP 126/52
[2020-11-07 05:02] LABS: HEMATOCRIT 24.7 % (37.0-47.0); HEMOGLOBIN 7.7 gm/dL (12.0-15.0); MCH 25.5 pg (26.0-34.0); MCHC 31.2 g/dL (28.0-37.0); MCV 81.5 fL (80.0-100.0); RBC 3.02 mil/uL (4.20-5.00); RDW 26.3 % (10.5-14.5); WBC 18.7 thou/uL (4.0-11.0)
[2020-11-07 05:39] LABS: ALBUMIN 1.6 g/dL (3.4-5.0); CALCIUM 7.9 mg/dL (8.5-10.1); CREATININE 0.8 mg/dL (0.6-1.0); MAGNESIUM 1.9 mg/dL (1.8-2.4); POTASSIUM 3.3 mmol/L (3.5-5.1); TOTAL BILIRUBIN 0.7 mg/dL (0.2-1.0); TOTAL PROTEIN 4.9 g/dL (6.4-8.2)
[2020-11-07 07:15] VITALS: BP 118/68
--- NOTE | 2020-11-07 09:27 | NUR ---
PT REMAINS CONFUSED ALERT TO NAME NEDDS MUCH COAXING AND ENCOURAGEMENT TO KEEP O2 TUBING PLACED CORRECTLY, TO TAKE MEDICATIONS, REFUSED PAIN MEDICATION AFTER STATEING SHE WAS HAVING PAIN DRESSING CDI, BURTON WITH MINIMAL AMOUNT OF URINE, TRIED TO ENCOURAGE PO INTAKE, REPOSITIONED NEEDED, REPORT GIVEN TO NEXT SHIFT TO CON'T PPOC.
[2020-11-07 11:50] VITALS: BP 138/68
[2020-11-07 16:00] VITALS: BP 148/63
--- NOTE | 2020-11-07 18:24 | NUR ---
MOSTLY UNINTELLIGIBLE, PLAINTIVE SPEECH. SR PER TELE. DISCONTINUES E.J. LEFT NECK BY HERSELF. PERIPHERAL SALINE LOCK BY CATHY SMITH. FALL PRECAUTIONS IN PLACE. CLOSE TO NURSES' STATION.
[2020-11-07 19:13] VITALS: BP 100/80
[2020-11-08 04:12] VITALS: BP 112/49
--- NOTE | 2020-11-08 04:59 | NUR ---
pt remains alert to self and confused, vss, wesley with dark yellow urine, encouraged po intake with out much success, prn pain med given for r leg pain, repositoned pt as needed, immobilizer and dressing remain intact, will con't to monitor per ppoc.
[2020-11-08 07:35] VITALS: BP 137/46
[2020-11-08 09:11] LABS: ALBUMIN 1.6 g/dL (3.4-5.0); CALCIUM 7.9 mg/dL (8.5-10.1); CREATININE 0.8 mg/dL (0.6-1.0); POTASSIUM 3.5 mmol/L (3.5-5.1)
[2020-11-08 12:30] VITALS: BP 121/44
--- NOTE | 2020-11-08 12:30 | NUR ---
PT LYING IN BED, EYES MOSTLY CLOSED, EASILY AROUSABLE, GAVE AM MEDS WITH ENSURE PUDDING, PT ONLY TOOK 5 BITES WHEN HIGHLY COAXED, THEN REFUSED ANY MORE, DR DUFFY AWARE, WILL UPDATE PT'S ON STATUS, POSSIBLY GOING IN DIRECTION OF PALLIATIVE CARE.
[2020-11-08 15:45] VITALS: BP 111/33
[2020-11-08 19:00] VITALS: BP 128/45
[2020-11-09 03:25] VITALS: BP 127/60
[2020-11-09 04:07] LABS: ALBUMIN 1.3 g/dL (3.4-5.0); CREATININE 0.9 mg/dL (0.6-1.0); PHOSPHORUS 2.3 mg/dL (2.5-4.9); POTASSIUM 3.1 mmol/L (3.5-5.1)
[2020-11-09 07:20] VITALS: BP 137/82
--- NOTE | 2020-11-09 07:45 | NUR ---
ASSUMED PATIENT CARE AT 1845. PATIENT IS NOT PROGRESSING IN HER CARE PLAN. NURSE PERCEIVED PAIN ON BEHALF OF PATIENT MULTIPLE TIMES AND TREATED APPROPRIATELY. PATIENT IS ALERT TO SELF AND UNABLE TO PARTICIPATE IN CARE OR CALL FOR NEEDS. PATIENTS BREATHING IS SHALLOW WITH SPOT OXYGENATION CHECKS IN ACCEPTABLE RANGE. MULTIPLE TURNS AND SKIN CARE PROVIDED. AROUND 300 CC'S OUT THROUGH BURTON CATHETER. NURSE UNABLE TO GIVE 0700 MEDICATIONS DUE TO PATIENTS MENTATION.
[2020-11-09 11:30] VITALS: BP 138/52
[2020-11-09 16:30] VITALS: BP 151/61
--- NOTE | 2020-11-09 17:39 | NUR ---
UNEVENTFUL DAY FOR THIS UNFORTUNATE PATIENT. VISITS AT BEDSIDE, WANTS TO BRING ALL OF HER CHILDREN IN ONE AT A TIME TO SEE HER. INFORMED HIM OF COVID VISITATION RULES. SHE IS SR PER TELE. FALL PRECAUTIONS IN PLACE.
[2020-11-09 19:19] VITALS: BP 152/79
[2020-11-10 03:59] VITALS: BP 147/58
[2020-11-10 07:45] VITALS: BP 128/48
--- NOTE | 2020-11-10 07:45 | NUR ---
TURN Q2 HOURS.REFUSED PILLS THIS MORNING.MONITOR SHOWS SR.POC CONTINUED.
[2020-11-10 08:28] LABS: ABSOLUTE NEUTROPHILS 16.3 thou/uL (1.4-8.2); BASOPHILS 0.2 % (0.0-2.0); EOSINOPHILS 0.5 % (0.0-3.0); HEMATOCRIT 24.1 % (37.0-47.0); HEMOGLOBIN 7.5 gm/dL (12.0-15.0); LYMPHOCYTES 7.7 % (24.0-44.0); MCH 25.4 pg (26.0-34.0); MCHC 31.1 g/dL (28.0-37.0); MCV 81.7 fL (80.0-100.0); MONOCYTES 6.2 % (1.0-8.0); PLATELET COUNT 216 thou/uL (150-400); POLYS 85.4 % (36.0-66.0); RBC 2.95 mil/uL (4.20-5.00); RDW 27.4 % (10.5-14.5)
[2020-11-10 08:49] LABS: ALBUMIN 1.3 g/dL (3.4-5.0); CALCIUM 8.1 mg/dL (8.5-10.1); CREATININE 0.9 mg/dL (0.6-1.0); MAGNESIUM 2.2 mg/dL (1.8-2.4); POTASSIUM 3.1 mmol/L (3.5-5.1); TOTAL BILIRUBIN 0.6 mg/dL (0.2-1.0); TOTAL PROTEIN 4.9 g/dL (6.4-8.2)
[2020-11-10 11:50] VITALS: BP 127/46
[2020-11-10 13:11] LABS: ANISOCYTOSIS 1+
--- NOTE | 2020-11-10 14:38 | NUR ---
FAXED CLINICAL UPDATE TO [facility] OF OP SPOKE WITH JUSTIN IN ADM SHE RECEIVED UPDATE.
[2020-11-10 15:20] VITALS: BP 127/43
--- NOTE | 2020-11-10 16:31 | NUR ---
CONDITIONS MOSTLY THE SAME FOR THIS UNFORTUNATE PATIENT. SPOUSE GOES THROUGH THE LITANY OF MISFORTUNES THIS COUPLE HAS EXPERIENCED. SR/ST PER TELE. PT, OT ATTEMPT TO WORK WITH HER. FAMILY IS CLOSER TO CONSIDERING HOSPICE. HER DAUGHTER WILL REPORTEDLY TAKE THE PLACE OF THE SPOUSE TOMORROW.
--- NOTE | 2020-11-10 17:06 | PATH ---
[facility] [address] [place] [address] PATHOLOGY RPT PROCEDURE Name: GERDA BOLTON Room #: 202-P ADM IN M.R.#: [id number] Admission: 11/02/20 Date of : 33 Discharge: Report #: [id number] Path Case #: [id number] [facility] Accession Number: [id number] . 01 Material submitted: . stomach - BIOPSY RANDOM GASTRIC R/O H. PYLORI . 01 Clinician provided ICD-10: S82.291B N17.9 . 01 Clinical history: . EPIGASTRIC PAIN, NAUSEA, DECREASED APPETITE, GASTRITIS, ULCER, ACUTE TIB-FIB FRACTURE . 02 Diagnosis: Gastric mucosa, random gastric, endoscopic biopsy: - Mild chronic gastritis with features of reactive gastropathy. - Occasional dilated fundic glands identified within a few fragments, compatible with fundic gland polyp. - Negative for intestinal metaplasia, atrophy or dysplasia. - Negative for Helicobacter pylori (properly controlled immunohistochemical stain performed). (IUV:cayden; 11/10/2020) QMS 11/10/2020 1131 Local . 02 Electronically signed: . Genesis Soares MD, Pathologist NPI- [id number] . 01 Gross description: . The specimen is received in formalin, labeled "Gerda Bolton, random gastric biopsy, R/O H. pylori". Received are four segments of pale knight soft tissue ranging in size from 0.3 to 0.5 cm in maximum dimensions. The specimen is submitted entirely in cassette A1. (CAA; 11/06/2020) QAC/QAC 11/06/2020 1653 Local . 02 Pathologist provided ICD-10: K29.50 . 02 CPT . 967716, [id number] Specimen Comment: A courtesy copy of this report has been sent to [phone], [phone] Specimen Comment: [phone], Specimen Comment: Report sent to ,DR CROWE / [place] [address] PATHOLOGY RPT PROCEDURE Name: GERDA BOLTON Room #: 202-P [facility] IN ..#: [id number] Admission: 11/02/20 Date of : 33 Discharge: Report #: [id number] Path Case #: [id number] Performed at: 01 [facility] Enrique Tapia [address], [place], [place] [id number] MD Deep Lorenzo MD Phone: [phone] Performed at: [address] [id number] MD Genesis Soares MD Phone: [phone]
--- NOTE | 2020-11-10 17:36 | NUR ---
Spoke with Dr Hamlin and spouse at bedside. Pallative care discussed. Initial plan for post acute care for skilled at [facility]. Patient has declined. Discussed with spouse and dtr on speaker phone. Discussed hospice care and home vs facility. Dtr reports her father cannot care for patient at home. They cannot afford a facility. Interest in Hospice House eval. Plan for eval tomorrow at 10:00 am. Dtr will be visitor for tomorrow approved from housekeeper head. Dtr to be present for 10:00 hospice house eval and to sp with phys. Casemgt following.
[2020-11-10 19:32] VITALS: BP 136/46
[2020-11-11 04:22] VITALS: BP 128/47
--- NOTE | 2020-11-11 04:29 | NUR ---
ASSUME CARE 1900. PT/VITALS STABLE. INTERMITTENT PAIN NOTED WITH ROM OR PALPATION OF EXTREMITIES. VERY POOR TOLERANCE TO ACTIVITY. COULD BENEFIT FROM PHYSICAL/OCCUPATIONAL THERAPY. SR ON MONITOR. ASSESSMETN CHARTED. VERY POOR PROGRESS TOWARDS POC. PLAN IS TO DISCUSS HOSPICE CARE WITH PT'S FAMILY TODAY, FOR POSSIBLE TRNASFER TO HOSPICE. WILL CONTINUE TO MONITOR AND FOLLOW WITH POC
[2020-11-11 07:15] VITALS: BP 120/46
[2020-11-11 08:09] LABS: ALBUMIN 1.3 g/dL (3.4-5.0); PHOSPHORUS 4.1 mg/dL (2.6-4.7); POTASSIUM 3.2 mmol/L (3.5-5.1)
--- NOTE | 2020-11-11 12:50 | NUR ---
Hospice evaled patient. They are accepting and have bed avail today. Dtr at bedside and met with hospice all in agreement with transfer to Hospice today. Chart copied, [facility] for 1200 noon, outside DNR completed. RN called report no further needs
--- NOTE | 2020-11-11 12:57 | NUR ---
ASSUMED CARE OF PT AT SHIFT CHANGE. ASSESSMENT CHARTED. PT AROUSABLE, BUT NOT ALERT OR ORIENTED. DAUGHTER HAD MEETING WITH HOSPICE HOUSE AND CM AT 10 AT BEDSIDE. PT DISCHARGED TO HOSPICE HOUSE AT 1145. TRANSPORTATION VIA AMBULANCE.
== END 2020-11-11 11:48 | disposition hospice, home (50) | DRG 853 ==
LOC: ER 09:38 → 2N 13:38 → EROBS 13:38 → 2N 19:14
PROVIDERS: Emergency Medicine; Hospitalist; Internal Medicine; Internal Medicine Nephrology; Nurse Practitioner Family; Orthopaedic Surgery Foot and Ankle Surgery; ADMIT Hospitalist; ATTEND Hospitalist
PROC: 0QSG04Z Reposition Right Tibia with Internal Fixation Device, Open Approach (ICD-10-PCS; principal; 2020-11-02)
PROC: B548ZZA Ultrasonography of Superior Vena Cava, Guidance (ICD-10-PCS; 2020-11-03)
PROC: 02HV33Z Insertion of Infusion Device into Superior Vena Cava, Percutaneous Approach (ICD-10-PCS; 2020-11-03)
PROC: 30233N1 Transfusion of Nonautologous Red Blood Cells into Peripheral Vein, Percutaneous Approach (ICD-10-PCS; 2020-11-03)
PROC: 0DJ08ZZ Inspection of Upper Intestinal Tract, Via Natural or Artificial Opening Endoscopic (ICD-10-PCS; 2020-11-05)
PROC: 0DB68ZX Excision of Stomach, Via Natural or Artificial Opening Endoscopic, Diagnostic (ICD-10-PCS; 2020-11-05)
DX: A41.9 Sepsis, unspecified organism (principal); S82.191B Other fracture of upper end of right tibia, initial encounter for open fracture type I or II; N17.0 Acute kidney failure with tubular necrosis; I46.9 Cardiac arrest, cause unspecified; S82.221B Displaced transverse fracture of shaft of right tibia, initial encounter for open fracture type I or II; E43 Unspecified severe protein-calorie malnutrition; G92 Toxic encephalopathy; E87.0 Hyperosmolality and hypernatremia; D62 Acute posthemorrhagic anemia; I69.351 Hemiplegia and hemiparesis following cerebral infarction affecting right dominant side; K50.90 Crohn's disease, unspecified, without complications; Z66 Do not resuscitate; Z20.822 Contact with and (suspected) exposure to COVID-19; E03.9 Hypothyroidism, unspecified; M81.0 Age-related osteoporosis without current pathological fracture; W18.39XA Other fall on same level, initial encounter; I48.0 Paroxysmal atrial fibrillation; G31.84 Mild cognitive impairment of uncertain or unknown etiology; D63.8 Anemia in other chronic diseases classified elsewhere; N18.31 Chronic kidney disease, stage 3a; E11.22 Type 2 diabetes mellitus with diabetic chronic kidney disease; I12.9 Hypertensive chronic kidney disease with stage 1 through stage 4 chronic kidney disease, or unspecified chronic kidney disease; R53.81 Other malaise; Z51.5 Encounter for palliative care; K21.9 Gastro-esophageal reflux disease without esophagitis; K25.9 Gastric ulcer, unspecified as acute or chronic, without hemorrhage or perforation; R63.0 Anorexia; E87.8 Other disorders of electrolyte and fluid balance, not elsewhere classified; K29.40 Chronic atrophic gastritis without bleeding; R63.4 Abnormal weight loss; Z68.28 Body mass index [BMI] 28.0-28.9, adult; I69.320 Aphasia following cerebral infarction; Z79.899 Other long term (current) drug therapy; Z79.82 Long term (current) use of aspirin; Z88.8 Allergy status to other drugs, medicaments and biological substances; Z88.2 Allergy status to sulfonamides; Z82.49 Family history of ischemic heart disease and other diseases of the circulatory system; Z83.3 Family history of diabetes mellitus; Z91.81 History of falling; Y93.89 Activity, other specified; Y92.89 Other specified places as the place of occurrence of the external cause; Y99.8 Other external cause status
CPT/HCPCS: 10081; 50101; 50341; 50386; 51412; 53078; 56524; 56525; 56527; 57091; 57103; 57180; 58433; 58434; 58435; 58436; 58437; 62110; 62900; 70005